=== PATIENT | male | born 1985 | race Caucasian/White ===

== ENCOUNTER 2017-02-06 17:48 | Inpatient (IN) | payer OTHER, MEDICAID ==
[~2017-02-06] VITALS: Ht 167.6 cm; Wt 65.8 kg
[~2017-02-06 17:48] MED LIST: BACL10TA4 PO; CAR30 GT; COL100L GT; DIGO0.051 GT; FAMO-90 GT; HEPA500056 SUBQ; INSU100S5 SUBQ; LEVEMIR SUBQ; NOVN SUBQ; POLY17PD65 GT
[2017-02-06 17:53] VITALS: BP 135/82
[2017-02-06] MEDS ORDERED: NACL 0.9% 1,000 ML IV ONE (18:30)
--- NOTE | 2017-02-06 18:31 | NUR ---
x-ray at bedside---
[2017-02-06 18:50] LABS: BASOPHILS # (AUTO) 0.3 K/uL (0.00-0.22); BASOPHILS % (AUTO) 4.6 % (0.0-2.0); EOSINOPHILS % (AUTO) 0.2 % (0.0-4.0); HEMATOCRIT 39.9 % (36-52); HEMOGLOBIN 13.4 g/dL (12.0-18.0); LYMPHOCYTES # (AUTO) 0.7 K/uL (2.0-11.5); LYMPHOCYTES % (AUTO) 12.8 % (20.5-51.1); MEAN CORPUSCULAR HEMOGLOBIN 28 pg (27-31); MEAN CORPUSCULAR HGB CONC 34 g/dL (33-37); MEAN CORPUSCULAR VOLUME 83 fL (80-94); MONOCYTES # (AUTO) 0.6 K/uL (0.8-1.0); MONOCYTES % (AUTO) 11.2 % (1.7-9.3); NEUTROPHILS # (AUTO) 3.9 K/uL (1.8-7.7); NEUTROPHILS % (AUTO) 71.2 % (42.2-75.2); PLATELET COUNT (AUTO) 139 K/uL (140-450); RED BLOOD CELL COUNT(AUTO) 4.78 MIL/uL (4.20-6.10); WHITE BLOOD COUNT (AUTO) 5.5 K/uL (4.8-10.8)
[2017-02-06 19:08] LABS: PROTHROMBIN TIME 10.4 secs (10.8-13.4)
[2017-02-06 19:14] LABS: ANION GAP 14.5 (8-16); CARBON DIOXIDE 27.2 mmol/L (21-32); CREATININE 0.7 mg/dL (0.7-1.3); POTASSIUM 3.7 mmol/L (3.5-5.1)
--- NOTE | 2017-02-06 19:28 | NUR ---
attempted iv insert x4 , Bjorn Waldrop RN also attempted-----unsuccessful tafoya insert attempted as well with a coude, unsuccessful to insert / Sarah ARTEAGA notified---- diaper changed mother at bedside---stated she noticed pt "not right". ---- no excessive phlegm from trach stoma noted--no diarrhea, no emesis
[2017-02-06 19:29] LABS: TOTAL BILIRUBIN 0.4 mg/dL (0.0-1.0)
[2017-02-06 19:30] LABS: ALBUMIN 3.2 g/dL (3.4-5.0)
--- NOTE | 2017-02-06 20:19 | NUR ---
SPUTUM SAMPLE COLLECTED ON PATIENT.
[2017-02-06] MEDS ORDERED: POLYETHYLENE GLYCOL 17 GM/PKT GT PRN (20:50)
[2017-02-06] MEDS: INSULIN HUMAN NPH 100 UNITS/ML VIAL SUBQ SCH (21:00)
[2017-02-06] MEDS: DOCUSATE 100 MG/10 ML UDC GT SCH (21:00)
[2017-02-06] MEDS ORDERED: ONDANSETRON 4 MG/2 ML VIAL IVP PRN (21:05)
[2017-02-06] MEDS ORDERED: ACETAMINOPHEN 325 MG TAB GT PRN (21:05)
[2017-02-06] MEDS ORDERED: HYDROcodone/APAP 5/325 MG 1 TAB TAB GT PRN (21:05)
[2017-02-06] MEDS: DEXT 5% /NACL 0.9% 1,000 ML IV SCH (21:05)
[2017-02-06] MEDS ORDERED: DEXTROSE 50% 50 ML SYR IVP PRN (21:05)
[2017-02-06 21:21] LABS: CKMB RELATIVE INDEX 0.4 (0.0-2.5); CREATINE KINASE MB 1.5 ng/mL (0-3.6)
--- NOTE | 2017-02-06 21:30 | NUR ---
PT IN BED, SIDE RAILS UP X2, PT APPEARS TO BE RESTING COMFORTABLY, VSS, COUGH NOTED, MOTHER AT BEDSIDE.
[2017-02-06] MEDS ORDERED: cefTRIAXone 1,000 MG VIAL ONE (21:52)
--- NOTE | 2017-02-06 22:19 | NUR ---
CRITICAL LABS LACTIC ACID 2.2. PAGED DR. ZAMORA. WAITING FOR CALL BACK.
--- NOTE | 2017-02-06 22:20 | NUR ---
RECEIVED PT FROM ER VIA [email or web address]. AOX0. PT IS APHASIC. NO DISTRESS NOTED. IV TO RIGHT HAND #24G, PATENT AND INTACT. PT HAS TRACH STOMA. G-TUBE IN PLACE, PATENT AND INTACT. SKIN ASSESSMENT DONE. V/S TAKEN. PT'S MOTHER AT BEDSIDE. FALL, SAFETY AND ASPIRATION PRECAUTION IN PLACE. CALL LIGHT WITHIN REACH. WILL CONTINUE TO MONITOR.
--- NOTE | 2017-02-06 22:25 | NUR ---
RECEIVED CALL BACK FROM DR. ZAMORA. REPORTED CRITICAL VALUE LACTIC ACID 2.2 NO NEW ORDER.
--- NOTE | 2017-02-06 22:30 | NUR ---
Patient will be admitted to care of DR VINCENT. Admited to MED SURG. Will go to room 106B. Belongings list completed. Report to DONNA.
--- NOTE | 2017-02-06 23:20 | NUR ---
BLOOD SUGAR CHECKED 139. PAGED DR. ZAMORA. DR. ZAMORA ORDERED TO HOLD NOVOLIN N. ORDERED CARRIED OUT.
[2017-02-06] MEDS: DILTIAZEM 30 MG TAB GT SCH (23:36)
[2017-02-07] VITALS: BP 127/72
--- NOTE | 2017-02-07 03:48 | NUR ---
PT SLEEPING. NO S/S OF DISTRESS NOTED. PT'S MOM AT BEDSIDE. CALL LIGHT WITHIN REACH.
[2017-02-07 04:00] VITALS: BP 118/76
--- NOTE | 2017-02-07 05:05 | NUR ---
PT TURNED AND REPOSITIONED. PT KEPT DRY, CLEAN AND COMFORTABLE. PT'S MOM STILL AT BEDSIDE. CALL LIGHT WITHIN REACH
[2017-02-07 06:30] LABS: BASOPHILS # (AUTO) 0.2 K/uL (0.00-0.22); BASOPHILS % (AUTO) 3.6 % (0.0-2.0); EOSINOPHILS % (AUTO) 0.7 % (0.0-4.0); HEMATOCRIT 37.4 % (36-52); HEMOGLOBIN 12.7 g/dL (12.0-18.0); MEAN CORPUSCULAR HEMOGLOBIN 29 pg (27-31); MEAN CORPUSCULAR HGB CONC 34 g/dL (33-37); MEAN CORPUSCULAR VOLUME 84 fL (80-94); MONOCYTES # (AUTO) 0.5 K/uL (0.8-1.0); NEUTROPHILS # (AUTO) 3.4 K/uL (1.8-7.7); NEUTROPHILS % (AUTO) 66.7 % (42.2-75.2); PLATELET COUNT (AUTO) 135 K/uL (140-450); RED BLOOD CELL COUNT(AUTO) 4.45 MIL/uL (4.20-6.10); RED CELL DISTRIBUTION WIDTH 15.1 % (11.6-13.7); WHITE BLOOD COUNT (AUTO) 5.1 K/uL (4.8-10.8)
[2017-02-07] MEDS: INSULIN LISPRO SLIDING SCALE 100 UNITS/ML VIAL SUBQ PRN ×3 (06:34→20:37)
[2017-02-07 06:43] LABS: ANION GAP 12.3 (8-16); CARBON DIOXIDE 27.2 mmol/L (21-32); CREATININE 0.5 mg/dL (0.7-1.3); POTASSIUM 3.5 mmol/L (3.5-5.1)
[2017-02-07] MEDS: DEXT 5% /NACL 0.9% 1,000 ML IV SCH ×2 (07:05→09:13)
--- NOTE | 2017-02-07 07:10 | NUR ---
ENDORSED PT TO DAY SHIFT NURSE. PT IN STABLE CONDITION.
--- NOTE | 2017-02-07 07:12 | NUR ---
RECEIVED BEDSIDE REPORT FROM CHANDLER WHEELER. PT RESTING IN BED. AAOX0. NO S/S OF ACUTE DISTRESS. FLACC-0. IV SITE PATENT AND INTACT. TRACH STOMA NOTED. REDNESS TO RIGHT INNER ELBOW NOTED. PT BUE AND BLE CONTRACTED. MOTHER AT BEDSIDE. CALL LIGHT WITHIN REACH. SAFETY MEASURES ENSURED. WILL CONTINUE TO MONITOR.
[2017-02-07] MEDS: BLOOD GLUCOSE MONITORING 1 DEV DEV FS SCH ×4 (07:25→21:19)
[2017-02-07 07:42] VITALS: BP 109/78
--- NOTE | 2017-02-07 08:57 | NUR ---
PATIENT HAS BEEN SCREEND AND CATEGORIZED HIGH NUTRITIONAL RISK. PATIENT WILL BE SEEN WITHIN 1-2 DAYS OF ADMISSION. 02/07/[address]
[2017-02-07] MEDS: INSULIN HUMAN NPH 100 UNITS/ML VIAL SUBQ SCH ×2 (09:00→20:38)
[2017-02-07] MEDS: DILTIAZEM 30 MG TAB GT SCH ×2 (09:00→20:35)
[2017-02-07] MEDS: FAMOTIDINE 20 MG TAB GT SCH (09:06)
[2017-02-07] MEDS: DIGOXIN 0.125 MG/2.5 ML UDC GT SCH (09:06)
[2017-02-07] MEDS: BACLOFEN 10 MG TAB PO SCH ×3 (09:06→17:45)
--- NOTE | 2017-02-07 09:24 | NUR ---
AM MEDS GIVEN WITH EDUCATION. MOTHER VERBALIZED UNDERSTANDING. INSULIN HELD FOR BLOOD SUGAR 127 PT IS NPO. WILL CONTINUE TO MONITOR.
--- NOTE | 2017-02-07 12:59 | NUR ---
PT SLEEPING IN BED. NO S/S OF ACUTE DISTRESS. WILL CONTINUE TO MONITOR.
--- NOTE | 2017-02-07 15:23 | NUR ---
02/07/17 RD INITIAL ASSESSMENT COMPLETED PLEASE REFER TO NUTRITION ASSESSMENT UNDER CARE ACTIVITY FOR ESTIMATED NUTRITIONAL NEEDS. 1. CONSIDER: DIABETISOURCE AC @ 55 ML/HR, FREE WATER FLUSHES 150 ML Q 6H. THIS WILL PROVIDE 1584 KCALS, 79 GM PRO AND 1677 ML FREE WATER PER DAY. TO MEET 96% EST KCAL, 120% EST PRO AND 100% EST FLUID NEEDS/DAY AND PROVIDE 24 KCAL, 1.2 GM PRO AND 25 ML WATER PER KG OF BODY WEIGHT (ACTUAL) 2. RD TO FOLLOW-UP IN 2-3 DAYS, HIGH RISK CON[address]
[2017-02-07 16:00] VITALS: BP 116/75
--- NOTE | 2017-02-07 17:04 | NUR ---
CHECKED IN ON PT, PT RESTING IN BED. SPO2 94% ON ROOM AIR. BREATHING IS NOT LABORED, PT IS NOT IN RESPIRATORY DISTRESS OR SOB AT THIS TIME.
--- NOTE | 2017-02-07 18:04 | NUR ---
PT'S MOTHER TO FOLLOW UP WITH THE G-TUBE FEEDING HER SON IS ON.
--- NOTE | 2017-02-07 19:08 | NUR ---
ENDORSED PLAN OF CARE TO NIGHT RN. PT REMAINS STABLE.
--- NOTE | 2017-02-07 19:10 | NUR ---
RECEIVED REPORT FROM DAY SHIFT NURSE. AOX0, APHASIC. IV TO RIGHT HAND #24G WITH D5NS AT 100 ML/HR INFUSING WELL. PT'S MOM AT BEDSIDE. TRACH STOMA CLEAN AND DRY. G-TUBE PATENT AND INTACT. DISCUSSED PLAN OF CARE, PT'S MOM VERBALIZE UNDERSTANDING. SAFETY PRECAUTION IN PLACE. CALL LIGHT WITHIN REACH. WILL CONTINUE TO MONITOR.
[2017-02-07] MEDS: LEVOFLOXACIN 750 MG/D5W PREMIX 150 ML IV SCH (20:33)
[2017-02-07] MEDS: DOCUSATE 100 MG/10 ML UDC GT SCH (20:34)
[2017-02-07] MEDS: CLINDAMYCIN 600 MG in DEXTROSE 5% 50 ML IV SCH (21:52)
--- NOTE | 2017-02-07 22:20 | NUR ---
DR. CALDERON CAME IN TO SEE PT. MD ORDERED INFLUENZA A&B ANTIGEN NASAL SWAB. ORDER CARRIED OUT.
[2017-02-08] VITALS: BP 100/60
--- NOTE | 2017-02-08 01:05 | NUR ---
PT SLEEPING. NO S/S OF DISTRESS NOTED. PT'S MOM AT BED SIDE. CALL LIGHT WITHIN REACH.
[2017-02-08] MEDS ORDERED: HYDRAGUARD CREAM TP ONE (01:20)
[2017-02-08] MEDS: DEXT 5% /NACL 0.9% 1,000 ML IV SCH ×3 (02:56→21:31)
--- NOTE | 2017-02-08 03:45 | NUR ---
PT SLEEPING. NO S/S OF PAIN OR DISCOMFORT. SAFETY PRECAUTION IN PLACE. CALL LIGHT WITHIN REACH.
[2017-02-08] MEDS: CLINDAMYCIN 600 MG in DEXTROSE 5% 50 ML IV SCH ×3 (04:31→20:33)
[2017-02-08] MEDS: BLOOD GLUCOSE MONITORING 1 DEV DEV FS SCH ×4 (06:23→21:00)
--- NOTE | 2017-02-08 06:24 | NUR ---
BLOOD SUGAR CHECKED 137. NO INSULIN COVERAGE NEEDED.
--- NOTE | 2017-02-08 07:05 | NUR ---
ENDORSED PT TO DAY SHIFT NURSE. PT IN STABLE CONDITION.
--- NOTE | 2017-02-08 07:15 | NUR ---
RECEIVED PATIENT REPORT FROM AIRCRAFT ASSEMBLER NURSE. PATIENT IS APHASIC, NONVERBAL AND SHOWS NO S/S OF ACUTE DISTRESS ON O2 @ 2L VIA NC. NOTED STOMA WITH THICK YELLOW SECRETIONS. IV ON THE RT HAND WITH IVF'S INFUSING WELL WITH NO SIGNS OF INFILTRATION. NOTED BLANCHABLE REDNESS ON THE INNER RT ELBOW AND AT PERINEAL AREA. BUE/BLE CONTRACTED. GT HAS NO FEEDING AT THIS TIME. GT WAS CHECKED FOR POSITIVE PLACEMENT, ASPIRATED WITH NO RESIDUAL, AND FLUSHED WITH 30 CC OF STERILE WATER. PATIENT IS UNABLE TO COMPREHEND POC FOR TODAY, PATIENT'S MOTHER IS AT BEDSIDE AND WAS EXPLAINED POC FOR TODAY. SHE VERBALIZED UNDERSTANDING. HOB IS ELEVATED AT 45 DEGREES, BED IN LOW POSITION WITH CALL LIGHT WITHIN REACH. WILL CONTINUE TO MONITOR.
[2017-02-08 08:00] VITALS: BP 104/67
[2017-02-08] MEDS: HYDRAGUARD CREAM TP SCH ×2 (09:00→21:17)
[2017-02-08] MEDS: INSULIN HUMAN NPH 100 UNITS/ML VIAL SUBQ SCH ×2 (09:00→22:09)
--- NOTE | 2017-02-08 09:31 | NUR ---
PT IS CURRENTLY ON 2 L NC. PT MOM IS IN ROOM. PT USED TO HAVE TRACH FOR 11 YEARS AND PER MOM TRACH WAS REMOVED 4 MONTH AGO AND PT HAS BEEN OK WITHOUT IT SINCE THEN. STOMA HAD DISCHARGE OF SML AMT OF THICK CREAMY SECRETIONS. NO GAUZE ON IT. NO SOB OR DISTRESS NOTED. WILL CONTINUE TO MONITOR.
[2017-02-08] MEDS: DILTIAZEM 30 MG TAB GT SCH ×2 (10:00→21:17)
[2017-02-08] MEDS: DIGOXIN 0.125 MG/2.5 ML UDC GT SCH (10:00)
--- NOTE | 2017-02-08 10:00 | NUR ---
ADMINISTERED SCHEDULED MEDICATIONS. PATIENT TOLERATED ACTIVITY WELL. MEDICATIONS WERE CRUSHED INDIVIDUALLY AND GIVEN WITH 10CC OF WATER. GT WAS FLUSHED WITH 30 CC OF WATER AFTER ADMINISTRATION. GT IS PATENT AND INTACT. NOVOLIN WAS NOT GIVEN D/T PATIENT BS IS 141 AND NO GT FEEDING AT THIS TIME. WILL CONTINUE TO MONITOR. THE HOB IS ELEVATED AT 45 DEGREES, BED IN LOW POSITION AND CALL LIGHT WITHIN REACH.
[2017-02-08] MEDS: BACLOFEN 10 MG TAB PO SCH ×3 (10:01→17:04)
[2017-02-08] MEDS: FAMOTIDINE 20 MG TAB GT SCH (10:01)
--- NOTE | 2017-02-08 10:12 | NUR ---
SPOKE WITH DR ZAMORA REGARDING PATIENT'S STOMA HAVING THICK YELLOW PHLEGM AND FOR PATIENT TO HAVE PRN BREATHING TX. DR TYSONED TO PLACE PRN BREATHING TX.
--- NOTE | 2017-02-08 11:55 | NUR ---
Social Service Note: Per Josselin from [facility] , their facility is only short term, not ferry terminal agent, unable to accept patient. Per Hilda from [facility] , no male long terms available at this time. Per Francie from [facility] , no ferry terminal agent beds available at this time. Per Ashlee from [facility] , admission coordinator is not available on weekends, unable to tell me if they have shelter beds available, she stated we need to call back on Friday. I left a message for admission coordinator Renetta from [facility] / Addendum: 02/08/17 at 1659 by Peyton Glaser SS I called and spoke with patient's mother Danae, informed at this time there are no accepting snfs. She verbalized understanding.
--- NOTE | 2017-02-08 12:43 | NUR ---
BS IS 152 NO INSULIN COVERAGE, PATIENT HAS NO TF AT THIS TIME. WILL CONTINUE TO MONITOR.
--- NOTE | 2017-02-08 13:29 | NUR ---
ADMINISTERED SCHEDULED MEDICATIONS. PATIENT IV ABX INFUSING WELL. NO RESIDUAL NOTED ON THE GT. GAVE MEDICATIONS WITH 30 CC OF STERILE WATER AND FLUSHED WITH 30 CC OF STERILE WATER. PATIENT HOB ELEVATED AT 45 DEGREES. PATIENT SHOWS NO S/S OF ACUTE DISTRESS ON ROOM AIR. MINIMAL YELLOW THICK SECRETIONS AT STOMA SITE. WILL CONTINUE TO MONITOR.
--- NOTE | 2017-02-08 15:20 | NUR ---
PATIENT IS RESTING AND SHOWS NO S/S OF ACUTE DISTRESS ON O2 @ 3L VIA NC. THE BED IS IN LOW POSITION WITH CALL LIGHT WITHIN REACH. WILL CONTINUE TO MONITOR.
[2017-02-08 16:00] VITALS: BP 101/55
[2017-02-08] MEDS: INSULIN LISPRO SLIDING SCALE 100 UNITS/ML VIAL SUBQ PRN ×2 (17:07→22:08)
--- NOTE | 2017-02-08 17:10 | NUR ---
ADMINISTERED SCHEDULED MEDICATIONS. NO RESIDUAL NOTED ON THE GT. GAVE MEDICATIONS WITH 30 CC OF STERILE WATER AND FLUSHED WITH 30 CC OF STERILE WATER. PATIENT HOB ELEVATED AT 45 DEGREES. PATIENT SHOWS NO S/S OF ACUTE DISTRESS ON O2 @ 3L VIA NC. MINIMAL YELLOW THICK SECRETIONS AT STOMA SITE. BS WAS 153 AND 2 UNITS OF HUMALOG WAS GIVEN PER SLIDING SCALE. PATIENT HAS ORDERED TF WILL ADMINISTER WHEN ON UNIT.
--- NOTE | 2017-02-08 19:25 | NUR ---
GAVE PATIENT REPORT AT BEDSIDE. PATIENT ENDORSED IN STABLE CONDITION.
--- NOTE | 2017-02-08 19:26 | NUR ---
PATIENT IS CURRENTLY RESTING IN BED.OPENS EYES BLINKS PATIENT IS NON VERBAL AND GTUBE FEEDING INFUSING WELL AT THIS TIME AND IVF INFUSING WELL.PATIENT IS CURRENTLY IN NO DISTRESS.NO PAIN OR DISCOMFORT NOTED.CALL LIGHT WITHIN REACH WILL CONTINUE TO MONITOR.
[2017-02-08 20:00] VITALS: BP 114/54
--- NOTE | 2017-02-08 20:00 | NUR ---
Patient's Plan of Care was discussed and reviewed with MALT HOUSE LOADER: NIRU ROLON
[2017-02-08] MEDS: ALBUTEROL SULFATE/IPRATROPIU 3 ML SOL IH PRN (20:07)
--- NOTE | 2017-02-08 20:07 | NUR ---
RESP THERAPIST DEZ BLEDSOE TO GIVE PATIENT A BREATHING TREATMENT.
[2017-02-08] MEDS: LEVOFLOXACIN 750 MG/D5W PREMIX 150 ML IV SCH (20:31)
[2017-02-08] MEDS: DOCUSATE 100 MG/10 ML UDC GT SCH (21:17)
--- NOTE | 2017-02-08 21:25 | NUR ---
PATIENT HAS BEEN TURNED AND REPOSITIONED WITH THE ASSISTANCE OF FRANCE CHOI PATIENT SOILED AND INCONTINENT OF URINE AND GOOD PERICARE WAS GIVEN AND HYDRAGUARD HAS BEEN APPLIED. OFFLOADING DONE WITH PILLOW TO PROTECT HEELS AND BONY PROMINENCES.GOOD ORAL CARE HAS BEEN GIVEN TO THE PATIENT AND PATIENT TOLERATED WELL.PATIENT CONTINUES TO BE MONITORED IS ON TELEMONITOR AND CURRENTLY GTUBE FEEDING CONTINUES TO INFUSE WELL.IVF INFUSING WELL ALSO AND IV IS INTACT NO INFILTRATION NOTED.FREQUENT VISUAL CHECKS WILL BE DONE.CALL LIGHT WITHIN REACH WILL CONTINUE TO MONITOR.
--- NOTE | 2017-02-08 22:12 | NUR ---
PATIENT RESTING IN BED WAS SUCTIONED THICK MODERATE YELLOWISH SECRETIONS NOTED.
--- NOTE | 2017-02-09 00:10 | NUR ---
PATIENT SLEEPING CURRENTLY STABLE.
[2017-02-09 00:20] VITALS: BP 136/66
--- NOTE | 2017-02-09 02:22 | NUR ---
PATIENT WAS SOILED WITH URINE GOOD PERICARE WAS GIVEN AND BED LINEN CHANGE AND ALSO GOWN WAS CHANGED.PATIENT WAS TURNED AND REPOSITIONED WITH THE ASSISTANCE OF FRANCE HERNANDES. PATIENT HAS MINIMAL SECRETIONS AT THIS TIME AND DOESN'T NEED TO BE SUCTIONED. OFFLOADING WITH PILLOWS DONE TO BODY AND LEGS.WILL CONTINUE TO MONITOR.IVF INFUSING WELL AND ALSO GTUBE FEEDING INFUSING WELL AND PATIENT IS TOLERATING WELL.
[2017-02-09 04:00] VITALS: BP 128/59
--- NOTE | 2017-02-09 04:20 | NUR ---
PATIENT IS CURRENTLY RESTING IN BED WAS TURNED AND REPOSITIONED WITH THE ASSISTANCE OF FRANCE GOLDBERG GOOD LORETTA CARE GIVEN.PATIENT WAS PULLED UP IN BED AND WAS SUCTIONED A LITTLE MINIMAL YELLOW THICK SECRETIONS NOTED.PATIENT SAT UP IN BED AND G TUBE RESUMED PATIENT CONTINUOS TO TOLERATED FEEDING WELL NO N/V NOTED RESIDUAL CHECK CURRENTLY 10ML OF RESIDUAL NOTED AT THIS TIME. IVF INFUSING WELL IV IST PATENT.
[2017-02-09] MEDS: CLINDAMYCIN 600 MG in DEXTROSE 5% 50 ML IV SCH ×2 (04:42→13:13)
[2017-02-09] MEDS: BLOOD GLUCOSE MONITORING 1 DEV DEV FS SCH ×4 (06:15→20:28)
--- NOTE | 2017-02-09 06:20 | NUR ---
PATIENT STABLE RESTING IN BED.
[2017-02-09 07:12] LABS: HEMATOCRIT 40.8 % (36-52); HEMOGLOBIN 13.4 g/dL (12.0-18.0); MEAN CORPUSCULAR HEMOGLOBIN 28 pg (27-31); MEAN CORPUSCULAR HGB CONC 33 g/dL (33-37); MEAN CORPUSCULAR VOLUME 84 fL (80-94); PLATELET COUNT (AUTO) 139 K/uL (140-450); RED BLOOD CELL COUNT(AUTO) 4.85 MIL/uL (4.20-6.10); RED CELL DISTRIBUTION WIDTH 14.4 % (11.6-13.7); WHITE BLOOD COUNT (AUTO) 3.1 K/uL (4.8-10.8)
--- NOTE | 2017-02-09 07:26 | NUR ---
PATIENT IS CURRENTLY RESTING IN BED STABLE REPORT ENDORSED TO CHANDLER BARROW.
--- NOTE | 2017-02-09 07:30 | NUR ---
RECEIVED PATIENT REPORT FROM MANAGER COMPENSATION NURSE AT BEDSIDE. PATIENT IS APHASIC, NONVERBAL AND SHOWS NO S/S OF ACUTE DISTRESS ON O2 @ 2L VIA NC. NOTED STOMA WITH THICK YELLOW SECRETIONS. IV ON THE RT HAND WITH IVF'S INFUSING WELL WITH NO SIGNS OF INFILTRATION. NOTED BLANCHABLE REDNESS ON THE INNER RT ELBOW AND AT PERINEAL AREA. BUE/BLE CONTRACTED. GT FEEDING IS INFUSING WELL. TF WAS HELD AND CHECKED FOR POSITIVE PLACEMENT, ASPIRATED WITH 40 CC OF RESIDUAL, AND FLUSHED WITH 30 CC OF STERILE WATER. PATIENT IS UNABLE TO COMPREHEND POC FOR TODAY, WILL NOTIFY PATIENT'S MOTHER REGARDING POC FOR TODAY WHEN SHE ARRIVES ON UNIT.SAFETY PRECAUTIONS IN PLACE, HOB IS ELEVATED AT 45 DEGREES, TF RESUMED, BED IN LOW POSITION WITH CALL LIGHT WITHIN REACH. WILL CONTINUE TO MONITOR.
[2017-02-09 07:44] LABS: CARBON DIOXIDE 25.1 mmol/L (21-32); CREATININE 0.5 mg/dL (0.7-1.3); POTASSIUM 3.1 mmol/L (3.5-5.1)
[2017-02-09] MEDS: ALBUTEROL SULFATE/IPRATROPIU 3 ML SOL IH PRN (07:56)
[2017-02-09 08:00] VITALS: BP 134/81
--- NOTE | 2017-02-09 08:30 | NUR ---
PAGED DR ZAMORA REGARDING PT'S POTASSIUM LEVEL OF 3.1. WILL AWAIT FOR CALL BACK.
[2017-02-09 08:35] LABS: BASOPHILS % (MANUAL) 2 % (0-2); EOSINOPHILS % (MANUAL) 0 % (0-4); LYMPHOCYTES % (MANUAL) 56 % (20-46); MONOCYTES % (MANUAL) 4 % (5-12)
[2017-02-09] MEDS: BACLOFEN 10 MG TAB PO SCH ×3 (08:57→16:50)
[2017-02-09] MEDS: FAMOTIDINE 20 MG TAB GT SCH (08:57)
[2017-02-09] MEDS: DIGOXIN 0.125 MG/2.5 ML UDC GT SCH (08:57)
[2017-02-09] MEDS: DILTIAZEM 30 MG TAB GT SCH ×2 (08:57→20:32)
[2017-02-09] MEDS: INSULIN HUMAN NPH 100 UNITS/ML VIAL SUBQ SCH ×2 (09:00→20:47)
[2017-02-09] MEDS: HYDRAGUARD CREAM TP SCH ×2 (09:00→20:33)
--- NOTE | 2017-02-09 09:15 | NUR ---
ADMINISTERED SCHEDULED MEDICATIONS. PATIENT TOLERATED ACTIVITY WELL. MEDICATIONS WERE CRUSHED INDIVIDUALLY AND GIVEN WITH 10CC OF WATER. TF WAS HELD. GT WAS FLUSHED WITH 30 CC OF WATER AFTER ADMINISTRATION. GT IS PATENT AND INTACT. TF RESUMED. PATIENT BS IS 179 AND NOVOLIN 27 UNITS WAS GIVEN. WILL CONTINUE TO MONITOR. THE HOB IS ELEVATED AT 45 DEGREES, BED IN LOW POSITION AND CALL LIGHT WITHIN REACH.
[2017-02-09] MEDS: DEXT 5% /NACL 0.9% 1,000 ML IV SCH (09:21)
--- NOTE | 2017-02-09 10:20 | NUR ---
PAGED DR Kristan ZAMORA AGAIN TO NOTIFY OF PATIENT'S POTASSIUM OF 3.1. WILL AWAIT FOR CALL BACK.
--- NOTE | 2017-02-09 10:48 | NUR ---
RECEIVED CALL BACK FROM DR ZAMORA AND ORDERED KCL 40 MEQ GT ONCE. WILL PLACE ORDERS.
--- NOTE | 2017-02-09 11:23 | NUR ---
MOTHER AT BEDSIDE. PATIENT SHOWS NO S/S OF ACUTE DISTRESS AT THIS TIME. WILL CONTINUE TO MONITOR.
[2017-02-09 12:00] VITALS: BP 106/52
[2017-02-09] MEDS ORDERED: POTASSIUM CHLORIDE 20% 40 MEQ/15 ML UDC GT SCH (13:00)
--- NOTE | 2017-02-09 13:20 | NUR ---
ADMINISTERED SCHEDULED MEDICATIONS. PATIENT IV ABX INFUSING WELL. NO RESIDUAL NOTED ON THE GT. GAVE MEDICATIONS WITH 30 CC OF STERILE WATER AND FLUSHED WITH 30 CC OF STERILE WATER. PATIENT HOB ELEVATED AT 45 DEGREES. PATIENT SHOWS NO S/S OF ACUTE DISTRESS ON O2 @ 2L VIA NC. MINIMAL YELLOW THICK SECRETIONS AT STOMA SITE. WILL CONTINUE TO MONITOR.
--- NOTE | 2017-02-09 15:30 | NUR ---
PATIENT IS RESTING IN BED AND SHOWS NO S/S OF ACUTE DISTRESS ON O2 @ 2L VIA NC.
--- NOTE | 2017-02-09 15:40 | NUR ---
PATIENT C/O COUGH AND PAIN ADMINISTERED PRN COUGH MEDICATION. WHILE ADMINISTERING IV MORPHINE 2 MG IV PATIENT STATED, "IT'S HURTING" IV WAS DISCONTINUED WITH CANNULA INTACT. NEW IV WAS ATTEMPTED WITH NO SUCCESS. WILL ASK FOR ASSISTANCE FOR NEW IV. Addendum: 02/09/17 at 1853 by Ruchi Beverly RN WRONG PATIENT
[2017-02-09 16:00] VITALS: BP 125/68
[2017-02-09] MEDS: INSULIN LISPRO SLIDING SCALE 100 UNITS/ML VIAL SUBQ PRN (16:42)
--- NOTE | 2017-02-09 17:30 | NUR ---
PATIENT'S MOTHER AT BEDSIDE. PATIENT'S NEEDS MET AT THIS TIME. WILL CONTINUE TO MONITOR.
--- NOTE | 2017-02-09 18:55 | NUR ---
TF HELD. GT ASPIRATED FOR RESIDUAL, NONE NOTED. NEW TF LINES AND DIABETI SOURCE ADMINISTERED. TF INFUSING WELL. WILL CONTINUE TO MONITOR. HOB ELEVATED AT 45 DEGREES. BED IN LOW POSITION AND CALL LIGHT WITHIN REACH. MOTHER AT BEDSIDE.
--- NOTE | 2017-02-09 19:34 | NUR ---
RECEIVED HANDOFF REPORT FROM AM RN. PATIENT RESTING IN BED. FLACC 0. IV SITE PATENT AND INTACT. G TUBE PATENT AND INTACT. O2 2L NC INTACT. TELE BOX IN PLACE. NO SIGNS OR SYMPTOMS OF ACUTE DISTRESS NOTED. CALL LIGHT WITHIN REACH. MOTHER AT BEDSIDE. WILL CONTINUE TO MONITOR.
[2017-02-09 20:07] VITALS: BP 119/70
[2017-02-09] MEDS: LEVOFLOXACIN 750 MG/D5W PREMIX 150 ML IV SCH (20:22)
--- NOTE | 2017-02-09 20:31 | NUR ---
PM MEDS GIVEN WITH EDUCATION. REINFORCEMENT NEEDED. PATIENT CAN NOT COMPREHEND. G TUBE RESIDUAL 0. FLACC 0. NO SIGNS OR SYMPTOMS OF ACUTE DISTRESS NOTED. MOTHER AT BEDSIDE. WILL CONTINUE TO MONITOR.
[2017-02-09] MEDS: DOCUSATE 100 MG/10 ML UDC GT SCH (20:32)
[2017-02-09] MEDS ORDERED: cefTRIAXone 1,000 MG VIAL ONE (22:02)
[2017-02-10] VITALS: BP 106/75
--- NOTE | 2017-02-10 01:17 | NUR ---
PATIENT RESTING IN BED. FLACC 0. NO SIGNS OR SYMPTOMS OF ACUTE DISTRESS NOTED. CALL LIGHT WITHIN REACH. MOTHER AT BEDSIDE. WILL CONTINUE TO MONITOR.
[2017-02-10 04:00] VITALS: BP 101/56
[2017-02-10] MEDS: BLOOD GLUCOSE MONITORING 1 DEV DEV FS SCH ×2 (06:30→11:39)
[2017-02-10 07:06] LABS: BASOPHILS # (AUTO) 0.1 K/uL (0.00-0.22); BASOPHILS % (AUTO) 2.8 % (0.0-2.0); HEMOGLOBIN 12.5 g/dL (12.0-18.0); LYMPHOCYTES # (AUTO) 1.4 K/uL (2.0-11.5); LYMPHOCYTES % (AUTO) 31.5 % (20.5-51.1); MEAN CORPUSCULAR HEMOGLOBIN 28 pg (27-31); MEAN CORPUSCULAR HGB CONC 34 g/dL (33-37); MEAN CORPUSCULAR VOLUME 84 fL (80-94); MONOCYTES # (AUTO) 0.7 K/uL (0.8-1.0); MONOCYTES % (AUTO) 16.7 % (1.7-9.3); NEUTROPHILS # (AUTO) 2.1 K/uL (1.8-7.7); PLATELET COUNT (AUTO) 145 K/uL (140-450); RED BLOOD CELL COUNT(AUTO) 4.42 MIL/uL (4.20-6.10); RED CELL DISTRIBUTION WIDTH 14.8 % (11.6-13.7); WHITE BLOOD COUNT (AUTO) 4.3 K/uL (4.8-10.8)
--- NOTE | 2017-02-10 07:07 | NUR ---
ENDORSED PLAN OF CARE TO AM RN. PATIENT IN STABLE CONDITION.
--- NOTE | 2017-02-10 07:10 | NUR ---
RECEIVED PATIENT REPORT FROM O AND M SUPERVISOR NURSE AT BEDSIDE. PATIENT IS APHASIC, NONVERBAL AND SHOWS NO S/S OF ACUTE DISTRESS ON O2 @ 2L VIA NC. NOTED STOMA WITH THICK YELLOW SECRETIONS WITH DRX APPLIED. IV ON THE RT HAND WITH IVF'S INFUSING WELL WITH NO SIGNS OF INFILTRATION. NOTED BLANCHABLE REDNESS ON THE INNER RT ELBOW AND AT PERINEAL AREA. BUE/BLE CONTRACTED. SKIN IS MOIST AND CLAMMY, BS IS 152. GT FEEDING IS INFUSING WELL. TF WAS HELD AND CHECKED FOR POSITIVE PLACEMENT, ASPIRATED WITH 20 CC OF RESIDUAL, AND FLUSHED WITH 30 CC OF STERILE WATER. PATIENT IS UNABLE TO COMPREHEND POC FOR TODAY, WILL NOTIFY PATIENT'S MOTHER REGARDING POC FOR TODAY WHEN SHE ARRIVES ON UNIT.SAFETY PRECAUTIONS IN PLACE, HOB IS ELEVATED AT 45 DEGREES, TF RESUMED, BED IN LOW POSITION WITH CALL LIGHT WITHIN REACH. WILL CONTINUE TO MONITOR.
[2017-02-10 07:25] LABS: CARBON DIOXIDE 28.5 mmol/L (21-32); CREATININE 0.5 mg/dL (0.7-1.3); POTASSIUM 3.5 mmol/L (3.5-5.1)
--- NOTE | 2017-02-10 07:30 | NUR ---
PATIENT IS CURRENTLY RECEIVING BREATHING TX BY RT.
[2017-02-10] MEDS: ALBUTEROL SULFATE/IPRATROPIU 3 ML SOL IH PRN ×2 (07:33→14:19)
[2017-02-10 08:00] VITALS: BP 132/74
[2017-02-10] MEDS: FAMOTIDINE 20 MG TAB GT SCH (09:26)
[2017-02-10] MEDS: BACLOFEN 10 MG TAB PO SCH ×2 (09:26→13:50)
[2017-02-10] MEDS: DILTIAZEM 30 MG TAB GT SCH (09:26)
[2017-02-10] MEDS: DIGOXIN 0.125 MG/2.5 ML UDC GT SCH (09:27)
[2017-02-10] MEDS: HYDRAGUARD CREAM TP SCH (09:38)
[2017-02-10] MEDS: INSULIN HUMAN NPH 100 UNITS/ML VIAL SUBQ SCH (09:38)
--- NOTE | 2017-02-10 09:45 | NUR ---
ADMINISTERED SCHEDULED MEDICATIONS. PATIENT TOLERATED ACTIVITY WELL. MEDICATIONS WERE CRUSHED INDIVIDUALLY AND GIVEN WITH 10CC OF WATER. TF WAS HELD. GT WAS FLUSHED WITH 30 CC OF WATER AFTER ADMINISTRATION. GT IS PATENT AND INTACT. TF RESUMED. WILL CONTINUE TO MONITOR. THE HOB IS ELEVATED AT 45 DEGREES, BED IN LOW POSITION AND CALL LIGHT WITHIN REACH.
--- NOTE | 2017-02-10 11:15 | NUR ---
PATIENT IS SLEEPING AND AROUSABLE BY SHAKING. BLOOD SUGAR IS 136, NO INSULIN COVERAGE NEEDED. PATIENT'S MOTHER AT BEDSIDE. ALL OF PATIENT'S NEEDS MET AT THIS TIME.
[2017-02-10 12:00] VITALS: BP 136/88
[2017-02-10] MEDS ORDERED: ROC2I IV (13:23)
--- NOTE | 2017-02-10 13:30 | NUR ---
GAVE PATIENT REPORT TO SRIRAM ARTEAGA. HE VERBALIZED UNDERSTANDING OF CONTINUITY OF CARE. GAVE CALL BACK NUMBER IF ANY FURTHER QUESTIONS.
--- NOTE | 2017-02-10 13:48 | NUR ---
02/10/17 RD FOLLOW UP COMPLETED PLEASE REFER TO NUTRITION PROGRESS NOTE UNDER CARE ACTIVITY FOR ESTIMATED NUTRITION NEEDS. RD RECOMMENDATIONS: 1- RECOMMEND CONTINUE CURRENT TF DIABETISOURCE @55 MLS/HR WITH 50MLS WATER FLUSH Q4 HRS; SUFFICIENT TO MEET 100%+ ESTIMATED NEEDS. 2- F/U 2-3 DAYS; HIGH RISK RAMY FINE MBA, RD
--- NOTE | 2017-02-10 14:00 | NUR ---
PATIENT'S MOTHER IS AT BEDSIDE WITH FAMILY. MOTHER SIGNED ALL DISCHARGE PAPERWORK AND IS AWARE OF CONTINUITY OF CARE BACK TO [facility]. PATIENT WILL CONTINUE IV ABX TX ROCEPHIN 1G DAILY. NICK MOTHER OF PATIENT VERBALIZED UNDERSTANDING. ALL BELONGINGS ARE WITH PATIENT. IV IS ON THE RIGHT HAND 24G AND WILL BE GOING WITH PATIENT BACK TO SNF. FAMILY IS AWARE [facility] WILL ARRIVE AT 1500. ALL OF PATIENT'S NEEDS MET AT THIS TIME. WILL CONTINUE TO MONITOR.
--- NOTE | 2017-02-10 14:00 | NUR ---
SPOKE WITH DIANDRA [employer] GENERAL MANAGER AT [facility] ([phone]), PT IS GOING TO ROOM 109-A BED AFTER 3 PM TODAY. CALLED [facility] AND SET UP TRANSPORTATION, PER ENZO, ETA IS AT 3 PM TODAY. TRUNG ASSIGNED NOTIFIED.
--- NOTE | 2017-02-10 14:06 | NUR ---
MEDICARE FORM FILLED OUT AND FAXED TO [facility], CONFIRMATION RECEIVED.
--- NOTE | 2017-02-10 15:00 | NUR ---
[facility] ON UNIT. PATIENT HAS BEEN DISCHARGED AND LEFT IN [facility] WITH MEDIC [facility] IN STABLE CONDITION WITH FAMILY PRESENT AT SIDE.
== END 2017-02-10 15:00 | disposition home or self-care (01) | DRG 871 ==
LOC: MED 17:48 → MTU 21:04
PROVIDERS: ADMIT Preventive Medicine Preventive Medicine/Occupational Environmental Medicine; ATTEND Preventive Medicine Preventive Medicine/Occupational Environmental Medicine
DX: A41.9 Sepsis, unspecified organism (principal); G82.50 Quadriplegia, unspecified; J96.10 Chronic respiratory failure, unspecified whether with hypoxia or hypercapnia; J13 Pneumonia due to Streptococcus pneumoniae; D69.6 Thrombocytopenia, unspecified; Z93.0 Tracheostomy status; E11.65 Type 2 diabetes mellitus with hyperglycemia; R53.81 Other malaise; E83.52 Hypercalcemia; E87.6 Hypokalemia; Z93.1 Gastrostomy status; Z88.8 Allergy status to other drugs, medicaments and biological substances; Z79.899 Other long term (current) drug therapy; Z74.01 Bed confinement status
CPT/HCPCS: 36415; 71010; 80048; 80053; 82550; 82553; 82948; 83605; 83874; 83880; 84484; 85025; 85610; 85651; 85730; 86140; 87040; 87070; 87081; 87186; 87205; 87804; 89220; 93005; 94640; 96361; 96365; 99285; J0696; J1644; J1815; J1956; J3490; J7042; J7060; J7620; Q0092

== ENCOUNTER 2017-05-13 21:13 | Inpatient (IN) | payer OTHER, MEDICAID ==
[~2017-05-13] VITALS: Ht 160 cm; Wt 52.6 kg
[~2017-05-13 21:13] MED LIST changes: +ROC2I IV
[2017-05-13 21:14] VITALS: BP 142/73
--- NOTE | 2017-05-13 21:22 | NUR ---
32m biba from [facility] with cough, congestion, fever and tachy. PATIENT POSITIONED FOR COMFORT; HOB ELEVATED; BEDRAILS UP X2; BED DOWN. ER MD MADE AWARE OF PT STATUS.
[2017-05-13] MEDS ORDERED: IBUPROFEN 600 MG TAB GT ONE (21:50)
[2017-05-13] MEDS ORDERED: LEVOFLOXACIN 750 MG/D5W PREMIX 150 ML IV ONE (21:50)
[2017-05-13] MEDS ORDERED: NACL 0.9% 2,000 ML IV ONE (21:50)
[2017-05-13] MEDS ORDERED: VANCOMYCIN 1,000 MG in DEXTROSE 5% 250 ML IV ONE (21:50)
[2017-05-13 21:57] LABS: HEMATOCRIT 43.1 % (36-52); HEMOGLOBIN 13.9 g/dL (12.0-18.0); MEAN CORPUSCULAR HEMOGLOBIN 27 pg (27-31); MEAN CORPUSCULAR HGB CONC 32 g/dL (33-37); PLATELET COUNT (AUTO) 197 K/uL (140-450); RED BLOOD CELL COUNT(AUTO) 5.07 MIL/uL (4.20-6.10); RED CELL DISTRIBUTION WIDTH 14.9 % (11.6-13.7)
[2017-05-13 22:03] LABS: ANION GAP 15.8 (8-16); CARBON DIOXIDE 25.1 mmol/L (21-32); CREATININE 0.6 mg/dL (0.7-1.3); POTASSIUM 3.9 mmol/L (3.5-5.1)
[2017-05-13] MEDS ORDERED: VANCOMYCIN 1,000 MG VIAL ONE (22:06)
[2017-05-13 22:18] LABS: ALBUMIN 3.9 g/dL (3.4-5.0); TOTAL BILIRUBIN 0.7 mg/dL (0.0-1.0)
--- NOTE | 2017-05-13 22:23 | NUR ---
Patient appears to be resting comfortably in bed. pt is on cardiac technician and md juana made aware. mother at bedside.
[2017-05-13] MEDS ORDERED: ALBUTEROL 0.083% 2.5 MG/3 ML NEBU INH ONE (22:25)
[2017-05-13 22:31] LABS: LYMPHOCYTES % (MANUAL) 6 % (20-46); MONOCYTES % (MANUAL) 8 % (5-12)
[2017-05-13] MEDS ORDERED: NACL 0.9% 1,000 ML IV ONE (23:00)
--- NOTE | 2017-05-13 23:11 | NUR ---
PT RSTING IN BED, MOTHER AT BEDSIDE. ER MD NOTIFIED OF INCREASED HR S/P BREATHING TX.
[2017-05-13] MEDS ORDERED: POLYETHYLENE GLYCOL 17 GM/PKT GT PRN (23:30)
[2017-05-13] MEDS ORDERED: DEXTROSE 50% 50 ML SYR IVP PRN (23:35)
[2017-05-13] MEDS ORDERED: VANCOMYCIN PER PHARMACY MC PRN (23:35)
[2017-05-13] MEDS ORDERED: LORazepam 2 MG/ML VIAL IVP PRN (23:35)
[2017-05-13] MEDS ORDERED: MORPHINE SULFATE 4 MG/ML SYR IVP PRN (23:35)
[2017-05-13] MEDS ORDERED: ONDANSETRON 4 MG/2 ML VIAL IVP PRN (23:35)
[2017-05-14] VITALS (8 sets, daily range): BP systolic 104–131; BP diastolic 47–78
--- NOTE | 2017-05-14 00:44 | NUR ---
Patient will be admitted to care of DR. CROSS. Admited to ICU. Will go to room 3. Belongings list completed. Report to PHAM ARTEAGA.
--- NOTE | 2017-05-14 00:50 | NUR ---
RECEIVED PT FROM ER NURSE. NO ACUTE DISTRESS NOTED. MOM @ BEDSIDE. WILL CONTINUE TO OBSERVE
--- NOTE | 2017-05-14 01:00 | NUR ---
PT AWAKE SITTING UP IN BED, PERRLA +3 NOTED. CONTRACTURES TO ALL EXTREMITIES. PT OPENS EYES SPOTANEOUSLY, NO PURPOSEFUL MOVEMENT NOTED. PT ON 3L NC, DIMINISHED BREATH SOUNDS NOTED, SINUS TACH ON MONITOR, +2 RADIAL PULSES, +1 PEDAL PULSES. NO EDEMA NOTED. G TUBE CLAMPED, PATENT, FLUSHED AND IRRIGATED, POSITIVE PLACEMENT; AUDIBLE BOWEL SOUNDS. INCONTINENT TO URINE, SKIN INTACT, BLANCHABLE REDNESS TO BUTTOCKS AREA. NO OTHER S/S OF ACUTE DISTRESS NOTED. WILL CONTINUE MONITOR.
[2017-05-14] MEDS: DEXT 5% /NACL 0.9% 1,000 ML IV SCH ×2 (01:14→09:59)
--- NOTE | 2017-05-14 02:19 | NUR ---
0215 uptained sputum through pt stoma. specimen taken to lab.
[2017-05-14] MEDS: MORPHINE SULFATE 2 MG/ML SYR IVP PRN (03:00)
--- NOTE | 2017-05-14 03:00 | NUR ---
PT CONTINUES TO HAVE HR IN 125-130. FACIAL GRIMACE NOTED. WILL MEDICATE WITH PRN. SEE EMAR FOR DETAILS.
--- NOTE | 2017-05-14 03:43 | NUR ---
PT HR NOW 114. EYES CLOSED APPEARS RELAXED. NO S/S OF ACUTE DISTRESS NOTED WILL CONTINUE TO MONITOR.
[2017-05-14 05:07] LABS: HEMATOCRIT 37.5 % (36-52); HEMOGLOBIN 12.2 g/dL (12.0-18.0); MEAN CORPUSCULAR HEMOGLOBIN 28 pg (27-31); MEAN CORPUSCULAR HGB CONC 32 g/dL (33-37); MEAN CORPUSCULAR VOLUME 84.9 fL (80-94); PLATELET COUNT (AUTO) 147 K/uL (140-450); RED BLOOD CELL COUNT(AUTO) 4.42 MIL/uL (4.20-6.10); RED CELL DISTRIBUTION WIDTH 15.2 % (11.6-13.7)
[2017-05-14 05:27] LABS: ANION GAP 13.4 (8-16); CARBON DIOXIDE 24.1 mmol/L (21-32); CREATININE 0.5 mg/dL (0.7-1.3); POTASSIUM 3.5 mmol/L (3.5-5.1); TOTAL BILIRUBIN 0.5 mg/dL (0.0-1.0)
--- NOTE | 2017-05-14 05:30 | NUR ---
BATH GIVEN, REPOSITIONED PT.
[2017-05-14 06:13] LABS: EOSINOPHILS % (MANUAL) 1 % (0-4); LYMPHOCYTES % (MANUAL) 5 % (20-46); MONOCYTES % (MANUAL) 5 % (5-12)
[2017-05-14] MEDS: BLOOD GLUCOSE MONITORING 1 DEV DEV FS SCH ×4 (06:25→20:58)
--- NOTE | 2017-05-14 06:45 | NUR ---
RADIOLOGY @ BEDSIDE FOR CXR.
--- NOTE | 2017-05-14 07:14 | NUR ---
ENDORSED CARE TO AM NURSE. NO ACUTE DISTRESS. WILL CONTINUE TO MONITOR.
--- NOTE | 2017-05-14 07:15 | NUR ---
RECEIVED REPORT FROM PHAM RN AT BEDSIDE, PT IS AWAKE, NON-VERBAL, UNABLE TO FOLLOW COMMANDS, FLACC 0, HAS OLD TRACH STOMA, COVERED WITH DRY GAUZE, NO S/S OF DISTRESS, RHONCHI LUNG SOUNDS, ON OXYGEN AT 3L VIA NC, ST ON WILL CALL CLERK, ROUND SOFT ABDOMEN WITH ACTIVE BOWEL SOUNDS, GT TUBE IN PLACE, PATENT, NPO AT THIS TIME, INCONTINENT WITH B&B'S, BEDBOUND, CONTRACTURE TO EXTREMITIES NOTED. PERIPHERAL LINE TO LEFT WRIST, 22GA, PATENT, RUNNING D5NS AT 100ML/HR. TEMP 100.6F AND ELEVATED HR NOTED, HOB ELEVATED TO 30 DEGREES, POSITION CHANGED FOR OFF LOAD PRESSURE, SAFETY MEASURE IN PLACE, WILL CONTINUE TO MONITOR.
--- NOTE | 2017-05-14 07:40 | NUR ---
INFORMED DR. FERMIN TO CONSULT PT BY PHONE.
--- NOTE | 2017-05-14 08:00 | NUR ---
DR. FERMIN CAME IN TO SEE PT AT BEDSIDE, NEW ORDER OBTAINED, WILL FOLLOW UP.
--- NOTE | 2017-05-14 08:10 | NUR ---
STRAIGHT CATH COLLECTED URINE ORDERED AND SENT TO LAB.
--- NOTE | 2017-05-14 08:20 | NUR ---
INFORMED DR. CALDERON TO CONSULT PT BY PHONE.
[2017-05-14] MEDS: DILTIAZEM 30 MG TAB GT SCH ×2 (08:23→20:57)
[2017-05-14] MEDS: BACLOFEN 10 MG TAB PO SCH ×3 (08:23→17:58)
[2017-05-14] MEDS: DIGOXIN 0.125 MG/2.5 ML UDC GT SCH (08:23)
[2017-05-14] MEDS: FAMOTIDINE 20 MG TAB GT SCH (08:23)
[2017-05-14] MEDS: IBUPROFEN 400 MG TAB PO PRN ×2 (08:23→17:59)
--- NOTE | 2017-05-14 08:40 | NUR ---
SCHEDULED MEDICATION GIVEN VIA GT, PT TOLERATED WELL. PT'S MOTHER AT BEDSIDE, ANSWERED PT'S QUESTIONS.
--- NOTE | 2017-05-14 10:00 | NUR ---
PT IS COUGHING, SUCTION PROVIDED, NO MUCOUS SUCTION OUT AT THIS TIME, VSS, POSITION CHANGED FOR OFF LOAD PRESSURE.
[2017-05-14 10:59] LABS: APPEARANCE,URINE TURBID (CLEAR); BILIRUBIN,URINE NEGATIVE (NEGATIVE); BLOOD, URINE TRACE-I (NEGATIVE); COLOR,URINE YELLOW (YELLOW); LEUKOCYTE ESTERASE ,URINE NEGATIVE (NEGATIVE); NITRITE, URINE NEGATIVE (NEGATIVE); UGLUCOSE NEGATIVE (NEGATIVE)
--- NOTE | 2017-05-14 11:00 | NUR ---
TUBE FEEDING STARTED, PT TOLERATED WELL.
[2017-05-14 11:01] LABS: RBC,URINE 0-5 (RARE) /HPF (0-5); WBC,URINE 0-5 (RARE) /HPF (0-5)
[2017-05-14 11:02] LABS: CALCIUM OXALATE CRYSTALS,UR 0-10 /HPF (None Seen)
[2017-05-14 11:04] LABS: URINE AMORPHOUS URATE 1+ /HPF (None Seen)
--- NOTE | 2017-05-14 11:05 | NUR ---
PATIENT HAS BEEN SCREENED AND CATEGORIZED HIGH NUTRITION RISK. PATIENT WILL BE SEEN WITHIN 1-2 DAYS OF ADMISSION. 05/14/17 - 05/15/[address]
--- NOTE | 2017-05-14 12:00 | NUR ---
NO CHANGE OF CONDITION AT THIS TIME, POSITION CHANGED FOR OFF LOAD PRESSURE, TEMP 100.0F AT THIS TIME, FLACC 0
[2017-05-14] MEDS: VANCOMYCIN 750 MG in DEXTROSE 5% 250 ML IV SCH ×2 (13:11→23:12)
--- NOTE | 2017-05-14 13:31 | NUR ---
DR. ZAMORA CAME IN TO SEE PT AT BEDSIDE, WILL FOLLOW UP WITH NEW ORDERS.
--- NOTE | 2017-05-14 13:49 | NUR ---
05/14/2017 RD INITIAL ASSESSMENT COMPLETED PLEASE REFER TO NUTRITION ASSESSMENT UNDER CARE ACTIVITY FOR ESTIMATED NUTRITIONAL NEEDS. CONTINUE DIABETISOURCE AT 60 ML/HR VIA G TUBE TOLERATED. * PROVIDES 100% OF PATIENT ESTIMATED KCAL/PROTEIN NEEDS* RD TO FOLLOW-UP IN 2-3 DAYS PATIENT IS HIGH RISK. FLOR LOWRY, RD
--- NOTE | 2017-05-14 16:00 | NUR ---
NO FEVER, NO S/S OF DISTRESS, PT IS STILL COUGHING, SUCTION PROVIDED VIA TRACH STOMA WITH WHITE CREAMY MUCOUS. VSS, FLACC 0, POSITION CHANGED FOR OFF LOAD PRESSURE.
--- NOTE | 2017-05-14 17:20 | NUR ---
TRANSFERRED PT TO ROOM 124A VIA BED, ALL BELONGS GOES WITH PT, REPORT GIVEN TO CHANDLER MARIEE AT BEDSIDE, PT IS IN STABLE CONDITION AT THIS TIME.
--- NOTE | 2017-05-14 17:21 | NUR ---
PT [facility] TO [facility]. BEDSIDE REPORT GIVEN BY ADOLESCENT SPECIALIST INOCENTE. PT IS AAOX0 AND AWAKE. TELE MONITOR APPLIED. ST ON MONITOR. IV TO L WRIST 22G INTACT. RHONCHI LUNG SOUNDS HEARD ON AUSCULTATION. PT HAS OLD TRACH STOMA COVERED WITH GAUZE DRESSING. COUGH PRESENT. WHITE SPUTUM FROM STOMA NOTED. SUCTIONED STOMA AND CHANGED DRESSING. ON O2 NC 3L/MIN. O2 SAT 99%. NO LABORED BREATHING OR SOB. G-TUBE IN PLACE. CONTINUED FEEDING DIABETISOURCE 60ML/HR. PT WEARING DIAPER. RN REPORTED PT HAD INCONTINENT STOOL YELLOW AND PASTY. SKIN WARM AND DRY. DRY SCAB ON R PALM. NO SIGNS OF DISTRESS. MOTHER AT BEDSIDE. BED IN LOW POSITION, HOB 30 DEGREES. CALL LIGHT WITHIN REACH. WILL CONTINUE TO MONITOR.
--- NOTE | 2017-05-14 17:59 | NUR ---
CHECKED VS: TEMP 100.4, HR 117, BP 98/52, O2 SAT 99% ON NC 3L/MIN, RR 22. ADMINISTERED MOTRIN GTUBE FOR FEVER AND BACLOFEN GTUBE. PT TOLERATED MEDS WELL. CHECKED G-TUBE FOR RESIDUAL. OML NOTED. HOB 30 DEGREES. WILL CONTINUE TO MONITOR.
[2017-05-14] MEDS: ALBUTEROL SULFATE/IPRATROPIU 3 ML SOL IH SCH (18:54)
--- NOTE | 2017-05-14 19:15 | NUR ---
ENDORSED PT TO TANK PROCESSOR NURSE LAMIN AT BEDSIDE FOR CONTINUITY OF CARE. PT IN STABLE CONDITION.
--- NOTE | 2017-05-14 19:16 | NUR ---
RECEIVED PT FROM DAY SHIFT NURSE FERNY-CHANDLER. PT RESTING IN BED. QUADRIPLEGIC, APHASIC WITH TRACHEOSTOMY AND GASTROSTOMY. TUBE FEEDING DIABETISOURCE RUNNING AT 60ML/HR WITH 100 ML BOLUS FLUSH Q6H. BLE BUE CONTRACTURES. TRACHEOSTOMY COVERED WITH FLUFF GUARD TO BE CHANGED WHEN SOILED BY CREAMY SECRETIONS THAT ARE COUGHED UP. IV LEFT WRIST 22G. SEQUENTIALS APPLIED. NO S/S OF RESPIRATORY DISTRESS OR DISCOMFORT NOTED AT THIS TIME. BED IN LOWEST POSITION. CALL LIGHT WITHIN REACH. WILL CONTINUE TO MONITOR.
[2017-05-14] MEDS: DOCUSATE 100 MG/10 ML UDC GT SCH (20:57)
[2017-05-14] MEDS: LEVOFLOXACIN 500 MG/D5W PREMIX 100 ML IV SCH (20:58)
--- NOTE | 2017-05-14 21:00 | NUR ---
SCHEDULED MEDICATIONS TOLERATED WELL. BLOOD GLUCOSE 128, NO COVERAGE NEEDED. WILL CONTINUE TO MONITOR.
--- NOTE | 2017-05-14 23:15 | NUR ---
PT RESTING IN BED, COUGHS UP CREAMY SECRETIONS FROM TRACHEOSTOMY. SUCTIONED AROUND TRACH, APPLIED A NEW GAUZE. NO S/S OF RESPIRATORY DISTRESS OR DISCOMFORT. MONITORING O2SATS AT BEDSIDE, 98%. WILL CONTINUE TO MONITOR.
[2017-05-15] VITALS: BP 93/57
[2017-05-15] MEDS: ALBUTEROL SULFATE/IPRATROPIU 3 ML SOL IH SCH ×4 (01:25→18:59)
--- NOTE | 2017-05-15 01:30 | NUR ---
PT SLEEPING AT THIS TIME. NO S/S OF RESPIRATORY DISTRESS OR DISCOMFORT NOTED AT THIS TIME. BED IN LOWEST POSITION. CALL LIGHT WITHIN REACH. WILL CONTINUE TO MONITOR.
--- NOTE | 2017-05-15 03:30 | NUR ---
PT COUGHING. SUCTIONED CREAMY YELLOW SECRETIONS. NO S/S OF RESPIRATORY DISTRESS OR DISCOMFORT NOTED. WILL CONTINUE TO MONITOR.
[2017-05-15 04:00] VITALS: BP 112/67
[2017-05-15] MEDS: IBUPROFEN 400 MG TAB PO PRN ×2 (05:14→16:16)
--- NOTE | 2017-05-15 05:30 | NUR ---
PT BED LINENS WERE CHANGED, LORETTA CARE BY FRANCE KITCHEN. GTUBE GAUZE AND TRACHE GAUZE CHANGED. PT RESTING IN BED. NO S/S OF RESPIRATORY DISTRESS OR DISCOMFORT NOTED. TOLERATED WELL. WILL CONTINUE TO MONITOR.
[2017-05-15] MEDS: BLOOD GLUCOSE MONITORING 1 DEV DEV FS SCH ×4 (06:36→21:33)
[2017-05-15] MEDS: VANCOMYCIN 750 MG in DEXTROSE 5% 250 ML IV SCH (06:42)
--- NOTE | 2017-05-15 07:16 | NUR ---
ENDORSED PT CARE TO NURSE DILLON. PT IN STABLE CONDITION AT THIS TIME.
--- NOTE | 2017-05-15 07:17 | NUR ---
RECEIVED REPORT FROM DIRECTOR OPERATING NURSE LAMIN AT BEDSIDE FOR CONTINUITY OF CARE. PT IS AWAKE AND NONVERBAL. AAOX0. INTRODUCED SELF AND UPDATED BOARD. PT ON NC 3L/MIN. COUGH PRESENT. TRACH STOMA SUCTIONED. BLOOD TINGED SPUTUM NOTED. COVERED WITH GAUZE. RHONCHI LUNG SOUNDS HEARD. O2 SAT 95%. NO SOB. SKIN IS DIAPHORETIC AND INTACT. NO FEVER. G-TUBE FEEDING RUNNING AT 60ML/HR. BED IN LOW POSITION. WHEELS LOCKED, CALL LIGHT WITHIN REACH. WILL CONTINUE TO MONITOR.
[2017-05-15 07:35] LABS: ANION GAP 16.6 (8-16); CREATININE 0.5 mg/dL (0.7-1.3); POTASSIUM 3.6 mmol/L (3.5-5.1)
[2017-05-15 07:50] LABS: BASOPHILS # (AUTO) 0.1 K/uL (0.00-0.22); BASOPHILS % (AUTO) 2.8 % (0.0-2.0); EOSINOPHILS % (AUTO) 0.4 % (0.0-4.0); HEMATOCRIT 39.2 % (36-52); HEMOGLOBIN 12.8 g/dL (12.0-18.0); LYMPHOCYTES # (AUTO) 0.3 K/uL (2.0-11.5); MEAN CORPUSCULAR HEMOGLOBIN 28 pg (27-31); MEAN CORPUSCULAR HGB CONC 33 g/dL (33-37); MEAN CORPUSCULAR VOLUME 85.5 fL (80-94); MONOCYTES # (AUTO) 0.3 K/uL (0.8-1.0); MONOCYTES % (AUTO) 7.5 % (1.7-9.3); NEUTROPHILS # (AUTO) 3.9 K/uL (1.8-7.7); NEUTROPHILS % (AUTO) 82.3 % (42.2-75.2); PLATELET COUNT (AUTO) 135 K/uL (140-450); RED BLOOD CELL COUNT(AUTO) 4.58 MIL/uL (4.20-6.10); WHITE BLOOD COUNT (AUTO) 4.6 K/uL (4.8-10.8)
[2017-05-15 08:00] VITALS: BP 118/63
[2017-05-15] MEDS: DILTIAZEM 30 MG TAB GT SCH ×2 (09:52→21:32)
[2017-05-15] MEDS: DIGOXIN 0.125 MG/2.5 ML UDC GT SCH (09:52)
[2017-05-15] MEDS: BACLOFEN 10 MG TAB PO SCH ×3 (09:52→16:16)
[2017-05-15] MEDS: FAMOTIDINE 20 MG TAB GT SCH (09:52)
[2017-05-15 12:00] VITALS: BP 108/63
[2017-05-15] MEDS: VANCOMYCIN 1GM/DEXT 5% PREMIX 200 ML IV SCH ×2 (13:42→20:14)
[2017-05-15] MEDS: INSULIN LISPRO SLIDING SCALE 100 UNITS/ML VIAL SUBQ PRN ×2 (13:44→16:37)
--- NOTE | 2017-05-15 14:00 | NUR ---
PT HAD INCONTINENT URINE. CHANGED LINEN AND GOWNS. SUCTIONED TRACH STOMA. WHITE CREAMY SPUTUM NOTED. SCANT AMOUNT. O2 SAT 99% ON O2 NC 3L/MIN
--- NOTE | 2017-05-15 15:30 | NUR ---
GAVE REPORT TO [facility] FOR CONTINUITY OF CARE. PT IN STABLE CONDITION.
[2017-05-15 16:00] VITALS: BP 121/73
--- NOTE | 2017-05-15 16:00 | NUR ---
PATIENT IS SLEEPING COMFORTABLY. RESPIRATION EVEN, UNLABOR ON 2L NC. FLACC 0. NO DISTRESS NOTED AT THIS TIME. TEMP 100.1, WILL MEDICATE PER ORDER. RESIDUAL CHECKED AT 3ML, WILL CONTINUE WITH FEEDING. CALL LIGHT WITHIN REACH
[2017-05-15] MEDS: metFORMIN 500 MG TAB GT SCH (16:17)
--- NOTE | 2017-05-15 19:10 | NUR ---
ENDORSEMENT GIVEN TO THE LIGHT AIR DEFENSE ARTILLERY CREWMEMBER NURSE. PATIENT IS STABLE AT THIS TIME
--- NOTE | 2017-05-15 19:11 | NUR ---
RECEIVED PT FROM DAY SHIFT NURSE EVANS-CHANDLER. PT RESTING IN BED. QUADRIPLEGIC, APHASIC WITH TRACHEOSTOMY AND GASTROSTOMY. TUBE FEEDING DIABETISOURCE RUNNING AT 60ML/HR WITH 100 ML BOLUS FLUSH Q6H. BLE BUE CONTRACTURES. TRACHEOSTOMY COVERED WITH FLUFF GUARD TO BE CHANGED WHEN SOILED BY CREAMY SECRETIONS THAT ARE COUGHED UP. IV LEFT WRIST 22G @ TKO. NO S/S OF RESPIRATORY DISTRESS OR DISCOMFORT NOTED AT THIS TIME. BED IN LOWEST POSITION. CALL LIGHT WITHIN REACH. WILL CONTINUE TO MONITOR.
[2017-05-15 20:00] VITALS: BP 111/61
[2017-05-15] MEDS: LEVOFLOXACIN 500 MG/D5W PREMIX 100 ML IV SCH ×2 (21:00→22:17)
[2017-05-15] MEDS: DOCUSATE 100 MG/10 ML UDC GT SCH (21:32)
--- NOTE | 2017-05-15 21:35 | NUR ---
BLOOD GLUCOSE 133. NO INSULIN COVERAGE NEEDED. WILL CONTINUE TO MONITOR.
[2017-05-15] MEDS ORDERED: LEVOFLOXACIN 500 MG/D5W PREMIX 100 ML IV SCH (22:00)
--- NOTE | 2017-05-15 22:20 | NUR ---
SCHEDULED MEDICATIONS TOLERATED WELL. WILL CONTINUE TO MONITOR.
--- NOTE | 2017-05-15 23:55 | NUR ---
PT SLEEPING AT THIS TIME. NO S/S OF RESPIRATORY DISTRESS OR DISCOMFORT NEEDED AT THIS TIME. BED IN LOWEST POSITION. WILL CONTINUE TO MONITOR.
[2017-05-16] VITALS: BP 124/78
[2017-05-16] MEDS: ALBUTEROL SULFATE/IPRATROPIU 3 ML SOL IH SCH ×4 (00:36→20:00)
--- NOTE | 2017-05-16 01:20 | NUR ---
NEW DIABETISOURCE BAG HUNG, PRIMED AND CONNECTED TO RUN AT 60ML/HR. PT TOLERATED WELL.
--- NOTE | 2017-05-16 02:08 | NUR ---
PT SLEEPING IN BED. NO S/S OF RESPIRATORY DISTRESS OR DISCOMFORT NOTED AT THIS TIME. BED IN LOWEST POSITION. CALL LIGHT WITHIN REACH. WILL CONTINUE TO MONITOR.
[2017-05-16] MEDS: VANCOMYCIN 1GM/DEXT 5% PREMIX 200 ML IV SCH (03:00)
[2017-05-16 04:00] VITALS: BP 142/84
--- NOTE | 2017-05-16 04:17 | NUR ---
PT RESTING IN BED. TOLERATED VITAL SIGNS WELL. NO S/S OF RESPIRATORY DISTRESS OR DISCOMFORT. SUCTIONED TRACHE, CREAMY YELLOW SECRETIONS. BED IN LOWEST POSITION. WILL CONTINUE TO MONITOR.
--- NOTE | 2017-05-16 04:47 | NUR ---
FRANCE KAYE AND SATNI ASSISTED PT WITH CHANGE OF GOWN, BED LINENS, SPONGE BATH AND LORETTA CARE. TRACHE GAUZE CHANGED.
[2017-05-16] MEDS: BLOOD GLUCOSE MONITORING 1 DEV DEV FS SCH ×4 (05:56→21:00)
--- NOTE | 2017-05-16 05:59 | NUR ---
BLOOD GLUCOSE 163. WILL NEED INSULIN COVERAGE PER SLIDING SCALE. PT TOLERATED WELL. WILL CONTINUE TO MONITOR.
[2017-05-16] MEDS: INSULIN LISPRO SLIDING SCALE 100 UNITS/ML VIAL SUBQ PRN ×3 (06:14→18:23)
[2017-05-16 06:34] LABS: ANION GAP 14.2 (8-16); CARBON DIOXIDE 28.2 mmol/L (21-32); CREATININE 0.5 mg/dL (0.7-1.3); POTASSIUM 3.4 mmol/L (3.5-5.1)
--- NOTE | 2017-05-16 07:07 | NUR ---
PT WITH STOMA ON 2 LPM NC SXN PT ORALLY WELL STOMA SHALLOW SXN AT STOMA SITE SMALL AMT THICK OFF WHITE SECS
[2017-05-16 07:09] LABS: BASOPHILS # (AUTO) 0.1 K/uL (0.00-0.22); BASOPHILS % (AUTO) 2.3 % (0.0-2.0); EOSINOPHILS % (AUTO) 0.3 % (0.0-4.0); HEMATOCRIT 37.7 % (36-52); HEMOGLOBIN 12.6 g/dL (12.0-18.0); LYMPHOCYTES # (AUTO) 0.5 K/uL (2.0-11.5); MEAN CORPUSCULAR HEMOGLOBIN 28 pg (27-31); MEAN CORPUSCULAR HGB CONC 34 g/dL (33-37); MEAN CORPUSCULAR VOLUME 83.9 fL (80-94); MONOCYTES # (AUTO) 0.2 K/uL (0.8-1.0); MONOCYTES % (AUTO) 7.4 % (1.7-9.3); NEUTROPHILS # (AUTO) 1.8 K/uL (1.8-7.7); PLATELET COUNT (AUTO) 128 K/uL (140-450); RED BLOOD CELL COUNT(AUTO) 4.49 MIL/uL (4.20-6.10); RED CELL DISTRIBUTION WIDTH 14.8 % (11.6-13.7); WHITE BLOOD COUNT (AUTO) 2.6 K/uL (4.8-10.8)
--- NOTE | 2017-05-16 07:20 | NUR ---
RECEIVED PATIENT REPORT AT BEDSIDE. PATIENT AWAKE BUT APHASIC. NO S/S OF DISTRESS AT THIS TIME. PATIENT RECEIVING 2L O2 VIA NC. CONTRACTURES NOTED TO BUE AND BLE. G-TUBE FEEDING IN PLACE. STOMA FROM OLD TRACH COVERED WITH GAUZE, MINIMAL WHITE DRAINAGE NOTED. PATIENT ON TELE MONITORING. FALL PRECAUTIONS IN PLACE. WILL CONTINUE TO MONITOR
--- NOTE | 2017-05-16 07:20 | NUR ---
ENDORSED PT CARE TO NURSE ELY GARNICA. PT IN STABLE CONDITION AT THIS TIME.
[2017-05-16 08:00] VITALS: BP 114/67
[2017-05-16] MEDS: PIOGLITAZONE 30 MG TAB GT SCH (08:45)
[2017-05-16] MEDS: IBUPROFEN 400 MG TAB PO PRN (08:45)
--- NOTE | 2017-05-16 08:45 | NUR ---
PO MEDICATIONS ADMINISTERED VIA G-TUBE. NO RESIDUALS NOTED. PATIENT TOLERATED WELL. COOLING MEASURES IN PLACE. WILL CONTINUE TO MONITOR
[2017-05-16] MEDS: DILTIAZEM 30 MG TAB GT SCH ×2 (08:46→21:57)
[2017-05-16] MEDS: BACLOFEN 10 MG TAB PO SCH ×3 (08:46→17:59)
[2017-05-16] MEDS: metFORMIN 500 MG TAB GT SCH ×2 (08:46→17:59)
[2017-05-16] MEDS: FAMOTIDINE 20 MG TAB GT SCH (08:46)
[2017-05-16] MEDS: DIGOXIN 0.125 MG/2.5 ML UDC GT SCH (08:47)
--- NOTE | 2017-05-16 09:00 | NUR ---
SCHEDULED HEPARIN NOT ADMINISTERED. NO COAGULATION LABS DRAWN. PLATELETS ARE TRENDING DOWN. SCD IN PLACE
[2017-05-16] MEDS ORDERED: KCL 20 MEQ/WATER INJ PREMIX 200 ML IV SCH (09:30)
--- NOTE | 2017-05-16 09:30 | NUR ---
MADE DR ZAMORA AWARE OF PATIENT'S TEMP OF 102.4
--- NOTE | 2017-05-16 10:30 | NUR ---
TEMP RECHECKED 101.9. NO S/S OF DISTRESS. COOLING MEASURES IN PLACE. WILL CONTINUE TO MONITOR
[2017-05-16 12:00] VITALS: BP 105/66
[2017-05-16] MEDS ORDERED: VANCOMYCIN 1,250 MG in NACL 0.9% 250 ML IV SCH (13:00)
--- NOTE | 2017-05-16 13:00 | NUR ---
PATIENT ASLEEP IN BED. NO S/S OF DISTRESS NOTED
--- NOTE | 2017-05-16 14:00 | NUR ---
PATIENT TURNED AND REPOSITIONED FOR COMFORT. NO S/S OF DISTRESS NOTED
--- NOTE | 2017-05-16 14:30 | NUR ---
Cambering Machine Operator Notes: Recycling Program Manager Ashlee transfer a call from Staff/Yared from admissions at [facility] in [place] to discuss and confirm Patient's information. Per Yared Patient [facility] [place] [facility] [place] and stated that Patient will be able to returned to their facility when patient is Colonized at discharge from [facility]. Per Facility Staff Yared, Patient's mother has a power of corporate associate attorney and is Patient's healthcare decision maker. Yared also reported that Patient's MD under his Dr. Villasenor who had last visit with Patient last week in the facility. I thank Yared for all his information and ended the call.
--- NOTE | 2017-05-16 14:46 | NUR ---
CALLED YONG FROM ADMISSIONS AT [facility] AND INFORMED HIM OF THE RESULTS OF THE SPUTUM. I FAXED THE RESULTS TO SONYA GARCIA.
[2017-05-16 16:00] VITALS: BP 103/62
[2017-05-16] MEDS: PIPERACILLIN/TAZOBACTAM 4.5 GM in DEXTROSE 5% 100 ML IV SCH (17:59)
--- NOTE | 2017-05-16 19:34 | NUR ---
PATIENT REPORT GIVEN AT BEDSIDE. PATIENT ENDORSED IN STABLE CONDITION
[2017-05-16 20:00] VITALS: BP 116/68
[2017-05-16] MEDS: DOCUSATE 100 MG/10 ML UDC GT SCH (21:57)
[2017-05-17] VITALS: BP 118/72
[2017-05-17] MEDS: PIPERACILLIN/TAZOBACTAM 4.5 GM in DEXTROSE 5% 100 ML IV SCH ×4 (00:25→17:47)
[2017-05-17] MEDS: IBUPROFEN 400 MG TAB PO PRN ×2 (01:48→11:32)
[2017-05-17] MEDS: ALBUTEROL SULFATE/IPRATROPIU 3 ML SOL IH SCH ×4 (02:00→19:05)
[2017-05-17 04:00] VITALS: BP 136/78
[2017-05-17] MEDS: INSULIN LISPRO SLIDING SCALE 100 UNITS/ML VIAL SUBQ PRN ×3 (06:05→17:35)
[2017-05-17] MEDS: BLOOD GLUCOSE MONITORING 1 DEV DEV FS SCH ×4 (06:35→21:13)
--- NOTE | 2017-05-17 07:30 | NUR ---
REPORT GIVEN TO DAY NURSE FOR CONTINUITY OF CARE, PT IN STABLE CONDITION. NO S/S OF DISTRESS NOTED.
--- NOTE | 2017-05-17 07:31 | NUR ---
RECEIVED REPORT FROM VICE PRESIDENT SALES AND MARKETING NURSE. PATIENT LYING DOWN IN BED SLEEPING, AROUSABLE BY VOICE. NO DISTRESS NOTED. FLACC 0. RESPIRATIONS EVEN, UNLABORED, ON O2 2L/MIN VIA NC. PATIENT ST WITH HR AROUND 140'S ON TELE MONITORING, WHICH HAS BEEN AROUND THERE THROUGHOUT THE NIGHT PER VICE PRESIDENT SALES AND MARKETING NURSE REPORTS. AAOX1, APHASIC, NON-VERBAL, SKIN COLOR APPROPRIATE TO ETHNICITY, WARM TO TOUCH. NO FEVER AT THIS TIME WITH TEMP 99.4 F. HAS RIGHT PALM SCAB, OTHERWISE SKIN IS INTACT. HAS TRACH STOMA WITHOUT TRACH NOTED THAT IS CURRENTLY COVERED WITH GAUZE FOR SECRETIONS. LUNGS CTA ON ALL LOBES. ABDOMEN SOFT. GTUBE SITE INTACT, PATENT, AND INFUSING GTUBE FEEDING PER ORDERS. IV SITE INTACT, PATENT, ON TKO AT 5 ML/HR. REVIEWED PLAN OF CARE WITH PATIENT. UNABLE TO COMPREHEND. SAFETY MEASURES IN PLACE, CALL LIGHT WITHIN REACH, FALL PREVENTIONS IN PLACE. WILL CONTINUE TO MONITOR.
[2017-05-17 08:00] VITALS: BP 103/55
[2017-05-17 08:42] LABS: BASOPHILS # (AUTO) 0.1 K/uL (0.00-0.22); BASOPHILS % (AUTO) 3.5 % (0.0-2.0); EOSINOPHILS % (AUTO) 0.2 % (0.0-4.0); HEMATOCRIT 35.3 % (36-52); HEMOGLOBIN 11.9 g/dL (12.0-18.0); LYMPHOCYTES # (AUTO) 0.4 K/uL (2.0-11.5); LYMPHOCYTES % (AUTO) 10.3 % (20.5-51.1); MEAN CORPUSCULAR HEMOGLOBIN 28 pg (27-31); MEAN CORPUSCULAR HGB CONC 34 g/dL (33-37); MEAN CORPUSCULAR VOLUME 82.6 fL (80-94); MONOCYTES # (AUTO) 0.3 K/uL (0.8-1.0); MONOCYTES % (AUTO) 7.8 % (1.7-9.3); NEUTROPHILS % (AUTO) 78.2 % (42.2-75.2); PLATELET COUNT (AUTO) 127 K/uL (140-450); RED BLOOD CELL COUNT(AUTO) 4.27 MIL/uL (4.20-6.10); RED CELL DISTRIBUTION WIDTH 14.4 % (11.6-13.7); WHITE BLOOD COUNT (AUTO) 3.8 K/uL (4.8-10.8)
[2017-05-17] MEDS: metFORMIN 500 MG TAB GT SCH ×2 (08:48→17:46)
[2017-05-17] MEDS: DILTIAZEM 30 MG TAB GT SCH ×2 (08:48→21:52)
[2017-05-17] MEDS: BACLOFEN 10 MG TAB PO SCH ×3 (08:48→17:47)
[2017-05-17] MEDS: PIOGLITAZONE 30 MG TAB GT SCH (08:48)
[2017-05-17] MEDS: FAMOTIDINE 20 MG TAB GT SCH (08:48)
[2017-05-17] MEDS: DIGOXIN 0.125 MG/2.5 ML UDC GT SCH (08:49)
--- NOTE | 2017-05-17 08:49 | NUR ---
PATIENT LYING IN BED SLEEPING, AROUSABLE BY VOICE. NO DISTRESS NOTED. FLACC 0. SCHEDULED MEDICATIONS DUE GIVEN. HEPARIN SUBQ INJECTION WITHHELD DUE TO DECREASED PLATELETS. SAFETY MEASURES IN PLACE, CALL LIGHT WITHIN REACH. WILL CONTINUE TO MONITOR.
[2017-05-17 09:10] LABS: ANION GAP 16.3 (8-16); CARBON DIOXIDE 26.2 mmol/L (21-32); CREATININE 0.7 mg/dL (0.7-1.3); POTASSIUM 3.5 mmol/L (3.5-5.1)
--- NOTE | 2017-05-17 10:00 | NUR ---
PLACED PT ON 3LPM NC DUE TO PT UNABLE TO KEEP SAT ABOVE 92%. HR 137 SAT 95% RR 20. ORALLY SXN PT AND SMALL THIN CLEAR SECRETIONS NOTED. WILL CONT TO MONITOR PT.
--- NOTE | 2017-05-17 11:13 | NUR ---
PATIENT LYING IN BED. NO DISTRESS NOTED. FLACC 0. PATIENT HAS A FEVER WITH TEMP 102.2, MOTRIN GIVEN PER MD ORDERS. COOLING MEASURES IN PLACE WITH ICE PACK. SAFETY MEASURES IN PLACE, CALL LIGHT WITHIN REACH. WILL CONTINUE TO MONITOR.
--- NOTE | 2017-05-17 11:47 | NUR ---
05/17/17 RD FOLLOW UP COMPLETED PLEASE REFER TO NUTRITION PROGRESS NOTE UNDER CARE ACTIVITY FOR ESTIMATED NUTRITION NEEDS. RD RECOMMENDATIONS: 1. CONTINUE DIABETISOURCE AT 60 ML/HR VIA G TUBE TOLERATED. * PROVIDES 100% OF PATIENT ESTIMATED KCAL/PROTEIN NEEDS* 2. RD WILL F/U 2-3 DAYS; HIGH RISK. OMARI LEACH, RD
--- NOTE | 2017-05-17 11:48 | NUR ---
PATIENT LYING IN BED. NO DISTRESS NOTED. FEVER OF 102.2 NOTED. MOTRIN GIVEN PER ORDERS. SCHEDULED ANTIBIOTIC MEDICATION DUE GIVEN. SAFETY MEASURES IN PLACE, CALL LIGHT WITHIN REACH. WILL CONTINUE TO MONITOR.
[2017-05-17 12:00] VITALS: BP 120/52
--- NOTE | 2017-05-17 13:00 | NUR ---
PATIENT'S FEVER IS GOING DOWN, CURRENT TEMPERATURE IS 99.4 F. WILL CONTINUE TO MONITOR.
[2017-05-17] MEDS: MORPHINE SULFATE 2 MG/ML SYR IVP PRN (13:03)
--- NOTE | 2017-05-17 13:28 | NUR ---
ASSISTED LIVESTOCK FARM MANAGER IN CLEANING AND REPOSITIONING PATIENT. MOTHER AT BEDSIDE. PATIENT HAS FACIAL GRIMACING, MORPHINE GIVEN DUE TO PAIN. OTHER SCHEDULED MEDICATIONS DUE GIVEN. SAFETY MEASURES IN PLACE, CALL LIGHT WITHIN REACH. WILL CONTINUE TO MONITOR.
--- NOTE | 2017-05-17 14:30 | NUR ---
IV BOLUS OF NS [address] ZAMORA Y ORDERS. WILL CONTINUE TO MONITOR.
[2017-05-17] MEDS ORDERED: NACL 0.9% 1,000 ML IV ONE (14:40)
[2017-05-17 16:00] VITALS: BP 117/64
--- NOTE | 2017-05-17 17:30 | NUR ---
OLD IV SITE HAS INFILTRATED. CALLED Shaunna FORD AND RECEIVED VERBAL ORDERS TO OK TO START A PERIPHERAL IV LINE ON THE FOOT. IV LINE STARTED ON RIGHT FOOT WITH 24 GAUGE ON SECOND ATTEMPT. SCHEDULED MEDICATIONS DUE GIVEN. SAFETY MEASURES IN PLACE, CALL LIGHT WITHIN REACH. WILL CONTINUE TO MONITOR.
--- NOTE | 2017-05-17 18:30 | NUR ---
PATIENT LYING IN BED SLEEPING, AROUSABLE BY VOICE. NO DISTRESS NOTED. FLACC 0. SCHEDULED MEDICATIONS DUE GIVEN. SAFETY MEASURES IN PLACE, CALL LIGHT WITHIN REACH. WILL CONTINUE TO MONITOR.
--- NOTE | 2017-05-17 19:05 | NUR ---
PT'S B/S: COARSE IN BOTH RIGHT AND LEFT UPPER LOBES AND DIMINISHED IN THE BASES. PT HAD A MOIST, CONGESTED, NON-PRODUCTIVE COUGH PRE TX. PATIENT TOLERATED TX WELL WITH NO ADVERSE EFFECTS AND NO INCREASE OF HEART RATE. WILL CONTINUE TO MONITOR.
[2017-05-17 20:00] VITALS: BP 126/73
--- NOTE | 2017-05-17 20:16 | NUR ---
GAVE REPORT TO MOTOR COACH SUPERVISOR NURSE FOR CONTINUITY OF CARE. PATIENT IN STABLE CONDITION.
--- NOTE | 2017-05-17 20:16 | NUR ---
RECEIVED PATIENT LYING IN BED WITH IV INFUSING WELL. BED IN LOW POSITION. NO S/S OF ACUTE DISTRESS AT THIS TIME. WILL CONTINUE TO MONITOR.
--- NOTE | 2017-05-17 21:15 | NUR ---
ASSESSED PT WHO WAS HAVING DIFFICULTY BREATHING, SPO2 92% AND HEART RATE 130, BREATH SOUNDS WERE VERY AUDIBLE OF SECRETIONS IN THE AIRWAYS. GAUZE OVER STOMA WAS SATURATED WITH THICK AND THIN LIGHT YELLOW SECRETIONS. STOMA APPEARS INTACT WITH NO RED AREAS OR INFLAMMATION. CLEANED AREA AROUND STOMA. SHALLOW SUCTIONED THROUGH STOMA TWO TIMES AND RECEIVED SMALL THICK YELLOW SECRETIONS. PLACED NEW GAUZE LIGHTLY OVER STOMA AND TAPED ON EACH SIDE TO KEEP IN PLACE. SPO2 POST SUCTION 97% AND HEART RATE 124. WILL CONTINUE TO MONITOR.
[2017-05-17] MEDS: DOCUSATE 100 MG/10 ML UDC GT SCH (21:53)
--- NOTE | 2017-05-17 22:25 | NUR ---
SEEN PATIENT LYING IN BED. NO S/S OF ACUTE DISTRESS NOTED AT THIS TIME. WILL CONTINUE TO MONITOR.
[2017-05-18] VITALS: BP 121/69
--- NOTE | 2017-05-18 | NUR ---
REPOSITIONED PATIENT AND TURNED EVERY 2 HOURS. PATIENT ASLEEP BUT EASILY AROUSABLE. NO S/S OF DISTRESS NOTED AT THIS TIME. WILL CONTINUE TO MONITOR.
[2017-05-18] MEDS: PIPERACILLIN/TAZOBACTAM 4.5 GM in DEXTROSE 5% 100 ML IV SCH ×5 (00:31→23:57)
[2017-05-18] MEDS: ALBUTEROL SULFATE/IPRATROPIU 3 ML SOL IH SCH ×4 (01:20→19:14)
--- NOTE | 2017-05-18 02:10 | NUR ---
CALLED RT TO SUCTION PATIENT. PATIENT TURNED AND REPOSITIONED. WILL CONTINUE TO MONITOR.
--- NOTE | 2017-05-18 02:11 | NUR ---
RN CALLED TO SUCTION PATIENT. REMOVED SATURATED GAUZE FROM STOMA, CLEANED AROUND STOMA WHILE RN AT BEDSIDE. SUCTIONED PATIENT ONE TIME DOWN STOMA RECEIVED SCANT TO SMALL, YELLOW, THICK SECRETIONS. REPLACED CLEAN GAUZE LIGHTLY OVER STOMA AND TAPED TO KEEP IN PLACE. PT'S SPO2 95 AND HEART RATE 123.
[2017-05-18 04:00] VITALS: BP 129/80
--- NOTE | 2017-05-18 04:07 | NUR ---
AM CARE AND ORAL CARE DONE. CHANGED LINEN AND PAD AND REPOSITIONED PATIENT. NO S/S OF ACUTE DISTRESS NOTED AT THIS TIME. WILL CONTINUE TO MONITOR.
[2017-05-18] MEDS: BLOOD GLUCOSE MONITORING 1 DEV DEV FS SCH ×4 (05:29→20:24)
[2017-05-18] MEDS: INSULIN LISPRO SLIDING SCALE 100 UNITS/ML VIAL SUBQ PRN ×2 (05:33→11:49)
--- NOTE | 2017-05-18 06:50 | NUR ---
PATIENT B/S COURSE WITH WHEEZES. TX GIVEN. PT TOLERATED TREATMENT WELL, NO ADVERSE EFFECTS. SPONTANEOUSLY EXPECTORATED MODERATE AMOUNT OF THICK YELLOW/WHITE SECRETIONS. OPEN STOMA CLEANED AND CHANGED GAUZE. NO DISTRESS NOTED AT THIS TIME. WILL CONTINUE TO MONITOR.
--- NOTE | 2017-05-18 07:20 | NUR ---
RECEIVED REPORT FROM TRANSFER STATION OPERATOR NURSE. PATIENT LYING IN BED SLEEPING, AROUSABLE BY VOICE. NO DISTRESS NOTED. FLACC 0. RESPIRATIONS EVEN, UNLABORED, RHONCHI NOTED THOUGHOUT ALL LOBES, ON O2 2L/MIN VIA NC. AAOX1, APHASIC, NON-VERBAL, SKIN COLOR APPROPRIATE TO ETHNICITY, WARM TO TOUCH. HAS RIGHT PALM SCAB, HOWEVER, SKIN IS INTACT. IV SITE INTACT, PATENT, FINISHING BOLUS OF 1000 ML NS. WILL CHANGE BACK TO TKO RATE ONCE BOLUS COMPLETED. GTUBE SITE INTACT, PATENT, AND INFUSING GTUBE CONTINUOUS FEEDING PER ORDERS. REVIEWED PLAN OF CARE WITH PATIENT. PATIENT UNABLE TO COMPREHEND. SAFETY MEASURES IN PLACE, FALL PREVENTIONS IN PLACE, CALL LIGHT WITHIN REACH. WILL CONTINUE TO MONITOR.
[2017-05-18 07:37] LABS: HEMATOCRIT 34.8 % (36-52); HEMOGLOBIN 11.6 g/dL (12.0-18.0); MEAN CORPUSCULAR HEMOGLOBIN 28 pg (27-31); MEAN CORPUSCULAR HGB CONC 33 g/dL (33-37); MEAN CORPUSCULAR VOLUME 83.7 fL (80-94); PLATELET COUNT (AUTO) 113 K/uL (140-450); RED BLOOD CELL COUNT(AUTO) 4.16 MIL/uL (4.20-6.10); RED CELL DISTRIBUTION WIDTH 14.4 % (11.6-13.7); WHITE BLOOD COUNT (AUTO) 4.1 K/uL (4.8-10.8)
[2017-05-18 07:41] LABS: ANION GAP 13.4 (8-16); CARBON DIOXIDE 28.9 mmol/L (21-32); CREATININE 0.5 mg/dL (0.7-1.3); POTASSIUM 3.3 mmol/L (3.5-5.1)
[2017-05-18 08:00] VITALS: BP 118/69
[2017-05-18] MEDS ORDERED: POTASSIUM CHLORIDE 20% 40 MEQ/15 ML UDC GT SCH (09:00)
--- NOTE | 2017-05-18 09:15 | NUR ---
ASSISTED GRINDING AND POLISHING LABORER IN CLEANING AND REPOSITIONING PATIENT. WILL CONTINUE TO MONITOR.
[2017-05-18 09:19] LABS: MAGNESIUM 1.8 mg/dL (1.8-2.4); THYROID STIMULATING HORMONE 3.1 uIU/mL (0.34-3.74)
[2017-05-18 09:20] LABS: LYMPHOCYTES % (MANUAL) 21 % (20-46); MONOCYTES % (MANUAL) 8 % (5-12)
[2017-05-18] MEDS ORDERED: NACL 0.9% 1,000 ML IV SCH (09:30)
--- NOTE | 2017-05-18 10:00 | NUR ---
NS BOLUS OF 1000 ML STARTED, PER DR. ZAMORA, Y ORDERS, ON 50 ML/HR DUE TO 24 GAUGE IV ON RIGHT FOOT AND PATIENT IS HARD STICK. WILL CONTINUE TO MONITOR.
[2017-05-18] MEDS: DIGOXIN 0.125 MG/2.5 ML UDC GT SCH (10:09)
[2017-05-18] MEDS: metFORMIN 500 MG TAB GT SCH ×2 (10:10→17:36)
[2017-05-18] MEDS: DILTIAZEM 30 MG TAB GT SCH ×2 (10:10→20:25)
[2017-05-18] MEDS: FAMOTIDINE 20 MG TAB GT SCH (10:10)
[2017-05-18] MEDS: BACLOFEN 10 MG TAB PO SCH ×3 (10:10→17:36)
[2017-05-18] MEDS: PIOGLITAZONE 30 MG TAB GT SCH (10:10)
--- NOTE | 2017-05-18 10:20 | NUR ---
PATIENT LYING IN BED. NO DISTRESS NOTED. FLACC 0. SCHEDULED MEDICATIONS DUE GIVEN. ORAL CARE PROVIDED. SAFETY MEASURES IN PLACE, CALL LIGHT WITHIN REACH. WILL CONTINUE TO MONITOR.
--- NOTE | 2017-05-18 11:59 | NUR ---
PATIENT LYING DOWN IN BED. NO DISTRESS NOTED. NO FEVER AT THIS TIME. SCHEDULED MEDICATIONS DUE GIVEN. CONDITION UNCHANGED. SAFETY MEASURES IN PLACE, CALL LIGHT WITHIN REACH. WILL CONTINUE TO MONITOR.
[2017-05-18 12:00] VITALS: BP 95/62
--- NOTE | 2017-05-18 13:17 | NUR ---
PATIENT LYING IN BED. NO DISTRESS NOTED. FLACC 0. SCHEDULED MEDICATIONS DUE GIVEN. SAFETY MEASURES IN PLACE, CALL LIGHT WITHIN REACH. WILL CONTINUE TO MONITOR.
--- NOTE | 2017-05-18 13:30 | NUR ---
PATIENT RESTING IN BED. TX GIVEN. PATIENT TOLERATED TX WELL, NO ADVERSE SIDE EFFECTS. BREATH SOUNDS COURSE. SHALLOW SUCTIONED THROUGH STOMA ONE TIME. SUCTIONED MODERATE AMOUNT OF THICK YELLOW/WHITE SECRETIONS. CLEANED AND DRIED STOMA. NEW, CLEAN GAUZE APPLIED. NO RESPIRATORY DISTRESS NOTED AT THIS TIME. WILL CONTINUE TO MONITOR.
[2017-05-18 16:00] VITALS: BP 96/65
--- NOTE | 2017-05-18 16:46 | NUR ---
PATIENT LYING IN BED WITH FAMILY MEMBERS AT BEDSIDE. NO DISTRESS NOTED. FLACC 0. RESPIRATIONS EVEN, UNLABORED, ON ROOM AIR. CONDITION UNCHANGED. IV SITE INTACT, PATENT, AND INFUSING IVF PER ORDERS. WILL CONTINUE TO MONITOR.
--- NOTE | 2017-05-18 17:49 | NUR ---
PATIENT LYING IN BED SLEEPING, AROUSABLE BY VOICE. MOTHER AT BEDSIDE. NO DISTRESS NOTED. FLACC 0. NO FEVER AT THIS TIME. SCHEDULED MEDICATIONS DUE GIVEN. SAFETY MEASURES IN PLACE, CALL LIGHT WITHIN REACH. WILL CONTINUE TO MONITOR.
--- NOTE | 2017-05-18 18:03 | NUR ---
PATIENT LYING IN BED COMFORTABLY. NO DISTRESS NOTED. FLACC 0. MOTHER AT BEDSIDE. CONDITION UNCHANGED. NO FEVER AT THIS TIME. WILL CONTINUE TO MONITOR.
--- NOTE | 2017-05-18 19:15 | NUR ---
RECEIVED PATIENT LYING IN BED. IV INFUSING WELL AND G-T FEEDING. BED IN LOW POSITION. CALL LIGHTS WITHIN REACH. WILL CONTINUE TO MONITOR.
--- NOTE | 2017-05-18 19:15 | NUR ---
GAVE REPORT TO MARKETING SERVICES SPECIALIST NURSE FOR CONTINUITY OF CARE. PATIENT IN STABLE CONDITION.
[2017-05-18 20:00] VITALS: BP 115/67
[2017-05-18] MEDS: DOCUSATE 100 MG/10 ML UDC GT SCH (20:26)
--- NOTE | 2017-05-18 21:30 | NUR ---
SEE PATIENT LYING IN BED COMFORTABLE ANS REPOSITIONED PATIENT EVERY 2 HRS. NO S/S OF ACUTE DISTRESS NOTED AT THIS TIME. WILL CONTINUE TO MONITOR..
[2017-05-19] VITALS: BP 106/61
[2017-05-19] MEDS: ALBUTEROL SULFATE/IPRATROPIU 3 ML SOL IH SCH ×3 (01:31→12:13)
--- NOTE | 2017-05-19 01:31 | NUR ---
DEEP TRACHEAL SUCTION VIA STOMA WITH A 14FR SUCTION CATHETER FOR SMALL THIN YELLOW SECRETIONS TOLERATED WELL WITHOUT ADVERSE REACTIONS NOTED POST HHN THERAPY CHANGED GAUZE DRESSING AT STOMA SITE
--- NOTE | 2017-05-19 02:00 | NUR ---
SEEN PATIENT ASLEEP IN BED WITH PILLOW ON HIS ARM FOR SUPPORT. PATIENT IN G- TUBE FEEDING AND IV INFUSING WELL.
[2017-05-19 04:00] VITALS: BP 112/63
--- NOTE | 2017-05-19 04:03 | NUR ---
PERINEAL AND AM CARE DONE. PATIENT TURN AND REPOSITION FOR COMFORT.
[2017-05-19] MEDS: PIPERACILLIN/TAZOBACTAM 4.5 GM in DEXTROSE 5% 100 ML IV SCH ×3 (05:09→17:51)
--- NOTE | 2017-05-19 05:50 | NUR ---
X-RAY ASSISTANT TEACHING PROFESSOR ASSISTED PATIENT FOR X-RAY. REPOSITION PATIENT FOR COMFORT.
[2017-05-19] MEDS: INSULIN LISPRO SLIDING SCALE 100 UNITS/ML VIAL SUBQ PRN ×3 (05:59→16:38)
[2017-05-19 07:04] LABS: HEMATOCRIT 32.6 % (36-52); HEMOGLOBIN 10.9 g/dL (12.0-18.0); MEAN CORPUSCULAR HEMOGLOBIN 28 pg (27-31); MEAN CORPUSCULAR HGB CONC 34 g/dL (33-37); RED BLOOD CELL COUNT(AUTO) 3.88 MIL/uL (4.20-6.10); RED CELL DISTRIBUTION WIDTH 14.4 % (11.6-13.7); WHITE BLOOD COUNT (AUTO) 5.4 K/uL (4.8-10.8)
--- NOTE | 2017-05-19 07:32 | NUR ---
GAVE REPORT TO AM SHIFT NURSE FOR CONTINUITY OF CARE. PATIENT IN STABLE CONDITION.
--- NOTE | 2017-05-19 07:34 | NUR ---
RECEIVED BEDSIDE REPORT FROM WORLD HISTORY TEACHER NURSE. PATIENT IS SLEEPING BUT IS EASILY AROUSABLE. PATIENT IS APHASIC. TRACH STOMA IS COVERED. DRESSING IS CLEAN AND DRY. NASAL CANNULA AT 2L, PATIENT SHOWS NO S/SX OF RESPIRATORY DISTRESS AT THIS TIME. SKIN IS INTACT. IV ON R FOOT 24 G NS AT 5ML/HR. IV SITE IS CLEAN, DRY, AND INTACT. AWAITING PATIENTS MOTHER TO COME IN AND SIGN CONSENT FOR CENTRAL LINE. G TUBE CURRENTLY INFUSING DIABETISOURCE 60ML WITH 100ML H20 FLUSH Q6HR. PATIENT IS INCONTINENT. FALL RISK PROTOCOL IN PLACE. SUCTION AT BEDSIDE. WILL CONTINUE TO MONITOR PATIENT. BED IN LOW POSITION.
[2017-05-19 07:50] LABS: ALBUMIN 2.5 g/dL (3.4-5.0); ANION GAP 14.8 (8-16); CARBON DIOXIDE 26.2 mmol/L (21-32); CREATININE 0.5 mg/dL (0.7-1.3); TOTAL BILIRUBIN 0.3 mg/dL (0.0-1.0)
[2017-05-19 08:00] VITALS: BP 121/84
[2017-05-19] MEDS: metFORMIN 500 MG TAB GT SCH ×2 (09:39→16:35)
[2017-05-19] MEDS: FAMOTIDINE 20 MG TAB GT SCH (09:40)
[2017-05-19] MEDS: BACLOFEN 10 MG TAB PO SCH ×3 (09:40→16:35)
[2017-05-19] MEDS: DILTIAZEM 30 MG TAB GT SCH (09:40)
[2017-05-19] MEDS: PIOGLITAZONE 30 MG TAB GT SCH (09:41)
[2017-05-19] MEDS: DIGOXIN 0.125 MG/2.5 ML UDC GT SCH (09:41)
--- NOTE | 2017-05-19 09:57 | NUR ---
HELD FEEDING. CHECKED FOR PLACEMENT AND NO RESIDUAL. GAVE MORNING MEDS ORDERED. HELD HEPARIN D/T PLACEMENT OF A CENTRAL LINE TODAY. ALL MEDS CRUSHED PER PROTOCOL FOR G TUBE MEDS. PATIENT TOLERATED MEDS WELL. FEEDING INFUSING AGAIN. FAMILY AT BEDSIDE. BED IN LOW POSITION. WILL CONTINUE TO MONITOR.
[2017-05-19 11:23] LABS: PLATELET COUNT (AUTO) 104 K/uL (140-450)
[2017-05-19] MEDS: MORPHINE SULFATE 2 MG/ML SYR IVP PRN (11:24)
[2017-05-19] MEDS: BLOOD GLUCOSE MONITORING 1 DEV DEV FS SCH ×2 (11:30→16:21)
[2017-05-19] MEDS: IBUPROFEN 400 MG TAB PO PRN (11:48)
[2017-05-19 11:50] LABS: EOSINOPHILS % (MANUAL) 2 % (0-4); LYMPHOCYTES % (MANUAL) 42 % (20-46); MONOCYTES % (MANUAL) 17 % (5-12)
--- NOTE | 2017-05-19 11:56 | NUR ---
DISCONTINUED MORPHINE PER PATIENTS MOTHERS REQUEST. SHE STATES HER SON IS IN PAIN, PRN MOTRIN GIVEN. PATIENT TOLERATED MEDS WELL. MOTRIN CRUSHED. CHECKED FOR PLACEMENT WITH SWOOSH. 20ML RESIDUAL. ANTIBIOTICS INFUSING. IV SITE IS CLEAN, DRY, AND INTACT. WILL CONTINUE TO MONITOR PATIENT. MOTHER STATES SHE WILL BE BACK IN 2 HOURS TO TALK TO ELEMENTARY SCHOOL REGISTRAR.
[2017-05-19 12:00] VITALS: BP 110/68
--- NOTE | 2017-05-19 13:08 | NUR ---
PATIENT IS CURRENTLY SLEEPING AND SHOWS NO SIGNS OF DISTRESS. ADMINISTERED AFTERNOON MEDS. CRUSHED MEDS PER PROTOCOL WITH G TUBE ADMINISTRATION. CHECKED FOR PLACEMENT WITH THE SWOOSH AND 10ML OF RESIDUAL. PATIENT TOLERATED MEDS WELL. WILL CONTINUE TO MONITOR PATIENT.
--- NOTE | 2017-05-19 14:01 | NUR ---
DR RUSSELL AND THE SURGICAL TEAM AND THE Apsalar TECH IS NOW AT BEDSIDE. WILL BE PUTTING IN A U/S GUIDED CENTRAL LINE. TIME OUT IN PLACE. CONSENT IN CHART. WILL CONTINUE TO MONITOR PT.
--- NOTE | 2017-05-19 14:44 | NUR ---
ULTRASOUND SUPERVISOR DONE WITH CHEST XRAY. CHEST XRAY DONE TO CHECK FOR PLACEMENT OF CENTRAL LINE. TURNED PATIENT TO THE RIGHT SIDE. PATIENT SHOWS NO S/SX OF DISTRESS AT THIS TIME. OXYGEN AT 2L/MIN NC. BED IN LOW POSITION. WILL CONTINUE TO MONITOR PATIENT.
[2017-05-19 16:00] VITALS: BP 102/61
--- NOTE | 2017-05-19 16:00 | NUR ---
Roxanne from [facility] call me in regards to Patient's acceptance to their facility in [facility] for an Acute bed however; Roxanne stated that when speaking with Patient's mother Danae Ramirez (Czech speaking Only). There was some information lost in conversation due to Roxanne not been Bilingual and needing have explained to Patient's mother the process of having patient transfer to their facility, and for mother to agreed and understand that patient will go and transfer in a termporary status and that after about 2 may be longer Patient will be transfer back to [facility]. I agreed to call Patient's mother and explained the process and agreed to call back Roxanne once I get to speak to Patient's mother.
--- NOTE | 2017-05-19 16:20 | NUR ---
I attempted to contact Patient's Mother Danae Ramirez at to discuss [facility] possible acceptance and process of transferring patient when a bed id found. Patient's mother did not answer and I left her a voicemail MGS with a request to call me back.
--- NOTE | 2017-05-19 16:45 | NUR ---
Danae Ramirez call me back to discuss, Patient's acceptance and transfer to [facility] when a bed is available. I explained to Mrs. Ramirez the information Roxanne from [facility] wanted her to understand and agreed to if Patient was to be accepted in their facility. I explained the process of transfer and that their facility acceptance will be only in a temporary status. Mrs. Ramirez agreed and stated that she still will want to look for another intermediate manager placement in [facility] when patient is ready for discharge from [facility] facility with in 1-2 weeks and that she will agree for Patient to retuned to [facility] in [place] if there is no other SNF found by the time. She agreed and was pleased to know that patient can be accepted at [facility] and requested these scenario writer a list of other SNF to do search on her own as well. I agreed to provide her with list as she requested and Mrs. Ramirez agreed to brass pickler list on 05/20/17. She thank me for my assistance and ended the call.
--- NOTE | 2017-05-19 16:49 | NUR ---
ADMINISTERED MEDS ORDERED. PATIENT TOLERATED MEDS WELL. MEDS CRUSHED PER PROTOCOL. CHECKED FOR PLACEMENT WITH SWOOSH. 30ML OF RESIDUAL PLACED BACK TO PATIENT. PATIENT PLACED BACK TO FEEDING AFTER MEDICATIONS. NO S/SX OF DISTRESS. BED IN LOW POSITION, WILL CONTINUE TO MONITOR PATIENT.
--- NOTE | 2017-05-19 16:49 | NUR ---
FOR [facility] FROM [facility] HERE THIS AM.
--- NOTE | 2017-05-19 16:50 | NUR ---
Social Workers Notes: I call Roxanne from [facility] back at , I explained to Roxanne previous conversation in [place] with Mrs. Danae Ramirez explaining her the Process of patient's acceptance in a temporary status at their facility with a plan for patient to continue with his care at [facility] and going back to [facility] after discharge from [facility] if no other SNF is found by his time of discharge. I explained to Roxanne that Mrs. Ramirez agreed and accepted the transfer when a bed is found. Roxanne thank me for assisting and stated that she will make the search for bed and will contact Charge nurse Moises at [facility] if any changes occur. I thank her and ended the call.
--- NOTE | 2017-05-19 18:00 | NUR ---
GAVE REPORT TO CHANDLER GARCES AT [facility]. [phone]. PT IS TO BE PICKED UP AT 1930 BY [facility].
--- NOTE | 2017-05-19 18:09 | NUR ---
STARTED ANTIBIOTICS THROUGH CENTRAL LINE. CENTRAL LINE IS CLEAN, DRY, AND INTACT. PATIENT TOLERATING MEDS WELL. WILL CONTINUE TO MONITOR PATIENT. BED IN LOW POSITION.
--- NOTE | 2017-05-19 18:43 | NUR ---
IV ON R FOOT REMOVED. THE TIP IS INTACT. PLACED PRESSURE TO STOP THE BLEEDING. PATIENT TOLERATED THE REMOVAL WELL. WILL CONTINUE TO MONITOR PATIENT.
--- NOTE | 2017-05-19 19:23 | NUR ---
GAVE BEDSIDE REPORT TO DISTRICT LOSS PREVENTION MANAGER NURSE. PATIENT IS IN STABLE CONDITION.
--- NOTE | 2017-05-19 19:30 | NUR ---
RECEIVED REPORT FROM DAY SHIFT RN, PATIENT RESTING IN BED, APHASIC. NO S/S OF DISTRESS NOTED, RESPIRATION EVEN AND UNLABORED, ON NC 2L. G-TUBE NOTED WITH CONTINUOUS FEEDING AT 60ML/HR. PATIENT WILL BE TRANSFERRED TO [facility]. [facility] WILL PICK PATIENT UP AROUND 1930. CALL LIGHT WITHIN REACH, SAFETY MEASURE ENSURED, WILL CONTINUE TO MONITOR.
--- NOTE | 2017-05-19 19:45 | NUR ---
REPORT GIVEN TO AMANDO FROM [facility]. VS TEMP 97.9, BP 120/75, HR 97, O2SAT 93% ON NC 2L, RR 20. PATIENT WAS LEFT UNIT IN STABLE CONDITION.
== END 2017-05-19 19:45 | DRG 871 ==
LOC: MED 21:13 → MIC 23:46 → MTU 05-14 17:10
PROVIDERS: ADMIT Preventive Medicine Preventive Medicine/Occupational Environmental Medicine; ATTEND Preventive Medicine Preventive Medicine/Occupational Environmental Medicine
PROC: 02HV33Z Insertion of Infusion Device into Superior Vena Cava, Percutaneous Approach (ICD-10-PCS; principal; 2017-05-19)
PROC: B548ZZA Ultrasonography of Superior Vena Cava, Guidance (ICD-10-PCS; 2017-05-19)
DX: A41.9 Sepsis, unspecified organism (principal); G82.50 Quadriplegia, unspecified; J96.21 Acute and chronic respiratory failure with hypoxia; J69.0 Pneumonitis due to inhalation of food and vomit; E43 Unspecified severe protein-calorie malnutrition; R65.21 Severe sepsis with septic shock; D61.818 Other pancytopenia; J15.1 Pneumonia due to Pseudomonas; G93.40 Encephalopathy, unspecified; Z93.0 Tracheostomy status; E87.1 Hypo-osmolality and hyponatremia; E11.51 Type 2 diabetes mellitus with diabetic peripheral angiopathy without gangrene; E11.65 Type 2 diabetes mellitus with hyperglycemia; B96.5 Pseudomonas (aeruginosa) (mallei) (pseudomallei) as the cause of diseases classified elsewhere; D63.8 Anemia in other chronic diseases classified elsewhere; Z68.20 Body mass index [BMI] 20.0-20.9, adult; E83.51 Hypocalcemia; E83.52 Hypercalcemia; E86.0 Dehydration; E86.1 Hypovolemia; E87.6 Hypokalemia; D47.3 Essential (hemorrhagic) thrombocythemia; F79 Unspecified intellectual disabilities; I11.0 Hypertensive heart disease with heart failure; I50.9 Heart failure, unspecified; J20.9 Acute bronchitis, unspecified; R13.10 Dysphagia, unspecified; Z88.6 Allergy status to analgesic agent; R10.13 Epigastric pain; Z93.1 Gastrostomy status; Z79.4 Long term (current) use of insulin
CPT/HCPCS: 36415; 36600; 71045; 71250; 80048; 80053; 80202; 81001; 82803; 82948; 83605; 83735; 83880; 84443; 85025; 85651; 86140; 87040; 87070; 87081; 87086; 87186; 87205; 89220; 93005; 93970; 94640; 96365; 99291; C1758; J1644; J1815; J1956; J2270; J2543; J3370; J3480; J7030; J7042; J7060; J7613; J7620; Q0092